=== PATIENT | male | born 1980 | race Caucasian/White ===

== ENCOUNTER 2020-12-21 12:50 | Outpatient (REF) | payer MEDICARE, MEDICAID, SELFPAY | END 2020-12-21 12:51 | disposition home or self-care (01) | LOC: HO.HMGCLDS 12:50 | PROVIDERS: Visit Provider Internal Medicine | DX: Z20.822 Contact with and (suspected) exposure to COVID-19 (principal) | CPT/HCPCS: C9803; U0003; U0005 ==

== ENCOUNTER 2023-11-15 12:25 | Outpatient (AMB) | payer MEDICARE, MEDICAID, SELFPAY ==
--- OUTSIDE RECORDS SUMMARY | 2023-11-15 12:27 | XMS_ITS | Patient Health Record ---
Author Organization [facility] Address [address] [place] [id number] Care Team Providers Care Pest Control Technician Name Role Phone AMINATA ROGERS Primary Care Provider JASON ERWIN Unavailable [phone] ALLERGIES Allergen (clinical drug ingredient) Drug/Non Drug Allergy documented on EMR Reaction Allergy Type Onset Date Status Latex latex (uncoded) Unknown Allergy Acti ve Pollen pollen (uncoded) Unknown Allergy Act artemio REASON FOR REFERRAL Reason Pt needing referral for colorectal Diagnosis 1 Anal pain (K62.89) Diagnosis 2 Other constipation ( K59.09) Referral Organization [facility] Referring Provider First Name AMINATA Referring Provider Last Name SUE Referring Provider Speciality Internal M edicine Referred Provider Specialty Colorectal S urgery General Notes faxed over specialty appt request form to [facility] colorectal Surgery., [phone] Clinical Notes Alejandra Maravilla 06/26 11:58:51 AM > Referral Priority Routine MEDICATIONS Medication SIG (Take, Route, Frequency, Duration) Notes Start Date End Date Status Hydrocortisone (Perianal) 2.5 % 1 application Externally Twice a day for 30 days 12/28/2021 Active Allopurinol 300 MG 1 tablet Orally Once a day for 90 Active Levothyroxine Sodium 75 MCG TAKE ONE TAB LET BY MOUTH EVERY MORNING ON AN EMPTY STOMACH for 30 Active Albuterol Sulfate HFA 108 (90 Base) MCG/ACT 1 puff as needed Inhalation every 4 hrs for 30 days 08/17/2022 Active Fluticasone Propionate 50 MCG/ACT 1 spray in each nostril Nasally Once a day for 30 day(s) 08/17/2022 Active Clotrimazole-Betamethasone 1-0.05 % APPLY TWICE DAILY TOPICALLY for 30 Active Vitamin D (Ergocalciferol) 37562 UNIT 1 capsule Orally weekly for 30 day(s) Active Pravastatin Sodium 40 MG TAKE ONE TABLET BY MOUTH EVERY DAY for 90 Active Lisinopril 5 MG 1 tablet Orally Once a day for 30 day(s) Active Colchicine 0.6 MG TAKE ONE TABLET BY M OUTH EVERY DAY for 30 Active Cetirizine HCl 10 MG TAKE ONE TABLET BY MOUTH EVERY DAY for 30 Active Ipratropium-Albuterol 0.5-2.5 (3) MG/3ML 3 ml Inhalation dx r06.02 and dx j45.0 every 6 hrs for 30 days Active Ventolin HFA 108 (90 Base) MCG/ACT 2 puffs as needed for sob Inhalation every 6 hrs for 30 days Active Colace 100 MG 1 capsule as needed Orally every 8 hours for 30 days Active IMMUNIZATIONS Vaccine Route Administration Date Status Comme nts Influenza, seasonal, injectable, 6-35 months Unknown 03/22/2016 Administered Moderna Covid-19 Vaccine IM Intramuscular 07/16/2020 Admin istered Moderna Covid-19 Vaccine Unknown 07/16/2020 Administere d Moderna Covid-19 Vaccine IM Intramuscular 07/26/2020 Admin istered Moderna Covid-19 Vaccine Unknown 08/13/2020 Administere d Moderna Covid-19 Vaccine Unknown 03/26/2021 Administere d Moderna Covid-19 Vaccine Unknown 10/03/2021 Administere d Pneumococcal polysaccharide PPV23 Unknown 07/13/2017 Administered prevnar 13 Unknown 03/09/2020 Administered Tdap Unknown 08/22/2018 Administered SOCIAL HISTORY Tobacco Use: Social History Observation Description Date Details (start date - stop date) Never Smoker NA - NA Sex Assigned At : Social History Observation Description Sex Assigned At Unknown Tobacco Use/Smoking Question Answer Notes Are you a nonsmoker PROBLEMS Problem Type ICD Code Onset Dates Problem Status W/U Status Risk SNOMED Code Notes Problem Asthma, unspecified, unspecified status (493.90) Active confirmed Asthma witho ut status asthmaticus (43200696) Problem Hypothyroidism, unspecified (E03.9) Active confirmed Hypothyroidism (62532770) Problem Morbid (severe) obesity due to excess calories (E66.01) Active confirmed Morbid obesity (disorder) (951319128) Problem Mixed hyperlipidemia (E78.2) Active confirmed Mixed hyperlipidemia (036012656) Problem Specific reading disorder (F81.0) Active confirmed Specific re ading disorder (971047601) Problem Essential (primary) hypertension (I10) Active confirmed Essential hypertension (16531343) Problem Mild intermittent asthma, uncomplicated (J45.20) Active confirmed Mild intermitte nt asthma (825406126) Problem Unspecified asthma with (acute) exacerbation (J45.901) Active confirmed Exacerbation of asthma (735067778) Problem Constipation, unspecified (K59.00) Active confirmed Constipation (26820991) Problem Other constipation (K59.09) Active confirmed 92093507 Problem Idiopathic gout, unspecified site (M10.00) Active confirmed Primary gout (53739345) Problem Encounter for general adult medical examination without abnormal findings (Z00.00) Active confirmed 813245293 Problem Body mass index (BMI) 40.0-44.9, adult (Z68.41) Active confirmed Body mass ind ex 40+ - severely obese (340330431) Problem Body mass index (BMI) 45.0-49.9, adult (Z68.42) Active confirmed Body mass ind ex 40+ - severely obese (284028224) Problem Body mass index (BMI) 50-59.9 , adult (Z68.43) Active confirmed Body mass ind ex 40+ - morbidly obese (918446542) Problem Morbid obesity (E66.01) Active confirmed Morbid obesity (387860166) Problem Hyperlipidemia, unspecified hyperlipidemia type (E78.5) Active confirmed Hyperlipidaemia (29392525) Problem Hematuria, unspecified type (R31.9) Active confirmed 45371643 Problem Adult general medical exam (Z00.00) Active confirmed Adult health examination (254358248) Problem Hypothyroidism, unspecified type (E03.9) Active confirmed Hypothyroidism (83680965) Problem Vitamin D deficiency (E55.9) Active confirmed Vitamin D deficiency (88989053) Problem Anal pain (K62.89) Active confirmed 28748312 Problem Fatty liver disease, nonalcoholic (K76.0) Active confirmed Fatty liver (684157571) Problem BMI 45.0-49.9, adult (Z68.42) Active confirmed Body mass ind ex 40+ - severely obese (636370549) Problem GERD without esophagitis (K21.9) Active confirmed Gastroesophagea l reflux disease (514962785) Problem Asthma (J45.909) Active confirmed Asthm a (605148164) Problem Screening for diabetes mellitus (DM) (Z13.1) Active confirmed 534781318 VITAL SIGNS Heart Rate 79 /min 06/25/2023 Oximetry 98 % 06/25/2023 Blood pressure diastolic 70 mm Hg 06/25/2023 Height 67 in 06/25/2023 Blood pressure systolic 128 mm Hg 06/25/2023 Weight 318 lbs 06/25/2023 BMI 49.8 kg/m2 06/25/2023 Encounters Encounter Location Date Provider Diagnosis [place] [address] [address] 10/24/2023 JASON BORHOT Essential (primary) hypertension I10 ; Mixed hyperlipidemia E78.2 ; Morbid (severe) obesity due to excess calories E66.01 ; Mild intermittent asthma, uncomplicated J45.20 ; BMI 45.0-49.9, adult Z68.42 ; Anal pain K62.89 and Other constipation K59.09 [place] [address] [address] 02/26/2023 AMINATA ROGERS Essential (primary) hypertension I10 ; Adult general medical exam Z00.00 ; Mixed hyperlipidemia E78.2 ; Morbid (severe) obesity due to excess calories E66.01 ; Hypothyroidism, unspecified E03.9 ; Mild intermittent asthma, uncomplicated J45.20 ; Depression screen Z13.31 ; Encounter for screening for other disorder Z13.89 ; BMI 45.0-49.9, adult Z68.42 and ACP (advance care planning) Z71.89 [place] [address] [address] 06/25/2023 JASON BORHOT Essential (primary) hypertension I10 ; Mixed hyperlipidemia E78.2 ; Morbid (severe) obesity due to excess calories E66.01 ; Mild intermittent asthma, uncomplicated J45.20 ; BMI 45.0-49.9, adult Z68.42 ; Anal pain K62.89 ; Other constipation K59.09 and Vitamin D deficiency E55.9 [facility] [address] [place] [address] 11/15/2022 AMINATA ROGERS [facility] [address] [place] [address] 02/06/2023 JASON ERWIN [facility] [place] [address] [facility] [address] [address] [facility] [address] [address] 11/15/2023 AMINATA ROGERS ASSESSMENTS Encounter Date Diagnosis Assessment Notes Treatment Notes Treatment Clinical Notes 02/26/2023 Essential (primary) hypertension (ICD-10 - I10) 02/26/2023 Adult general medica l exam (ICD-10 - Z00.00) 06/25/2023 Essential (primary) hypertension (ICD-10 - I10) 10/24/2023 Essential (primary) hypertension (ICD-10 - I10) 10/24/2023 Mixed hyperlipidemia (ICD-10 - E78.2) 06/25/2023 Mixed hyperlipidemia (ICD-10 - E78.2) 02/26/2023 Mixed hyperlipidemia (ICD-10 - E78.2) 02/26/2023 Morbid (severe) obesity due to excess calories (ICD-10 - E66.01) 06/25/2023 Morbid (severe) obesity due to excess calories (ICD-10 - E66.01) 10/24/2023 Morbid (severe) obesity due to excess calories (ICD-10 - E66.01) 10/24/2023 Mild intermittent asthma, uncomplicated (ICD-10 - J45.20) 06/25/2023 Mild intermittent asthma, uncomplicated (ICD-10 - J45.20) 02/26/2023 Hypothyroidism, unspecified (ICD-10 - E03.9) 02/26/2023 Mild intermittent asthma, uncomplicated (ICD-10 - J45.20) 06/25/2023 BMI 45.0-49.9, adult (ICD-10 - Z68.42) 10/24/2023 BMI 45.0-49.9, adult (ICD-10 - Z68.42) 10/24/2023 Anal pain (ICD-10 - K62.89) 02/26/2023 Depression screen (ICD-10 - Z13.31) 06/25/2023 Anal pain (ICD-10 - K62.89) 06/25/2023 Other constipation (ICD-10 - K59.09) 02/26/2023 Encounter for screening for other disorder (ICD-10 - Z13.89) 10/24/2023 Other constipation (ICD-10 - K59.09) 02/26/2023 BMI 45.0-49.9, adult (ICD-10 - Z68.42) 06/25/2023 Vitamin D deficiency (ICD-10 - E55.9) 02/26/2023 ACP (advance care planning) (ICD-10 - Z71.89) PLAN OF TREATMENT Pending Test Test Name Order Date TSH+Free T4 02/02/2019 Lipid Panel 02/02/2019 Lipid Panel 09/05/2018 Comp. Metabolic Panel (14) 09/05/2018 Comp. Metabolic Panel (14) 02/02/2019 CBC 02/02/2019 CBC 09/05/2018 Urinalysis 09/05/2018 EKG 12/17/2017 25OH VITAMIN D 09/07/2021 25OH VITAMIN D 06/25/2023 CBC (COMPLETE BLOOD COUNT) 09/20/2020 CBC (COMPLETE BLOOD COUNT) 07/26/2020 CBC (COMPLETE BLOOD COUNT) 12/17/2017 CBC (COMPLETE BLOOD COUNT) 10/16/2017 CBC (COMPLETE BLOOD COUNT) WITH DIFF CBC (COMPLETE BLOOD COUNT) WITH DIFF 10/2023 COMPREHENSIVE METABOLIC PANEL 07/26/2020 COMPREHENSIVE METABOLIC PANEL 12/17/2017 COMPREHENSIVE METABOLIC PANEL 04/11/2021 COMPREHENSIVE METABOLIC PANEL 09/20/2020 COMPREHENSIVE METABOLIC PANEL 09/07/2021 COMPREHENSIVE METABOLIC PANEL 06/25/2023 COMPREHENSIVE METABOLIC PANEL 10/16/2017 CRP, HIGH SENSITIVITY 12/17/2017 HEMOGLOBIN A1C 04/11/2021 HEMOGLOBIN A1C 02/07/2022 HEMOGLOBIN A1C 07/26/2020 HEMOGLOBIN A1C 09/07/2021 HEMOGLOBIN A1C 06/25/2023 HEMOGLOBIN A1C 10/16/2017 LIPID PANEL 10/16/2017 LIPID PANEL 09/07/2021 LIPID PANEL 06/25/2023 LIPID PANEL 07/26/2020 LIPID PANEL 12/17/2017 T4, TOTAL 02/07/2022 T4, TOTAL 04/12/2021 TSH 04/12/2021 TSH 02/07/2022 TSH 04/11/2021 TSH 06/25/2023 TSH WITH REFLEX TO FT4 07/26/2020 TSH WITH REFLEX TO FT4 09/07/2021 URIC ACID 09/20/2020 URIC ACID 12/17/2017 URINALYSIS W/REFLEX CULTURE 06/25/2023 URINALYSIS W/REFLEX CULTURE 09/07/2021 URINALYSIS, COMPLETE 10/16/2017 Uric Acid 02/02/2019 CT Head w and w/o Contrast 03/25/2018 XR KUB 12/28/2021 LIPID PANEL, STANDARD 02/26/2023 COMPREHENSIVE METABOLIC PANEL 02/26/2023 CBC (INCLUDES DIFF/PLT) 02/26/2023 URINALYSIS, COMPLETE 02/26/2023 COMPLETE URINALYSIS 09/20/2020 COMPLETE URINALYSIS 07/26/2020 Next Appt Details Provider Name:JASON ERWIN, 12/27/2023 11:00:00 AM, [address] [facility], [facility] [address], [place], [address], Insurance Providers Payer Name Payer Address Payer Phone Subscriber Number Group Number Insured Name Patient Relationship to Insured Coverage Start Date Coverage End Date Medicare Part B J14 [address] [place] [id number] KAYLA FOWLER Self - patient is the insured 9 [employer] [place] [address] [place] [address] [id number] KAYLA FOWLER Self - patient is the insured MEDICAL (GENERAL) HISTORY Medical History History ICD Code hyperlipidemia hypertension asthma
--- NOTE | 2023-11-15 12:47 | MHC.OFFWIV ---
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 Slip and fall at work yesterday Patient Tobacco Use Status: Never used Tobacco Allergies latex Allergy (Severe, Verified 11/15/23 13:59) Rash Medication List - Last Reconciled 11/15/23 by PARVIZ Reynoso acetaminophen ER 650 mg PO Q8H cetirizine 10 mg PO DAILY colchicine 0.6 mg PO DAILY ipratropium-albuterol 0.5 mg-3 mg(2.5 mg base)/3 mL mL inhalation Q6H levothyroxine 75 mcg PO DAILY lisinopril 5 mg PO DAILY pravastatin 40 mg PO DAILY Do you need a note to return to daycare/school/sports/work: Yes HPI HPI Comments History of Present Illness Details Patient is a 43-year-old male in today following an injury at work. One day prior patient was at work and slipped and fell on water on the floor that was dripping from on AC unit. Patient states that he landed on his left knee. Denies hearing cracks or pops when the injury occurred. Does report that he is having pain with ambulation. Has utilize Tylenol and ice with mild effect denies any tingling or numbness. Patient does have history of left knee sprain, has been utilizing left knee brace that he got from this prior injury. Patient is able to ambulate on the affected joint with a limb, is currently using assistance from a cane On physical exam patient's left knee is negative for cracking or crepitus. No edema or erythema. No bruising. Patient does have full range of motion. He is able to ambulate but with a limp. Will order left knee x-ray. PFSH Social History Patient Tobacco Use Status: Never used Tobacco Review of Systems Const All systems reviewed & are unremarkable except as noted in HPI and below Physical Exam Vital Signs: Last Vital Signs Temp 98.3 F 11/15/23 12:48 Pulse 58 11/15/23 12:48 BP 118/72 11/15/23 12:48 Pulse Ox 98 11/15/23 12:48 Oxygen Delivery Method Room Air 11/15/23 12:48 BMI result Body Mass Index 52.5 Const Other: Appearance: Alert.? Oriented X3.? No acute distress.? Head: Normocephalic, atraumatic, no step-offs or deformities Respiratory: No respiratory distress.? ? Extremities: No lower extremity edema.? No calf ttp. 5/5 strength to bilateral upper and lower extremities. No obvious deformity. +Patient ambulating with a limp. Neuro: Oriented X 3.? No motor deficit.? No sensory deficit. CN 2-12 intact Assessment & Plan Assessment & Plan (1) Left knee pain: Comment: Patient given left knee x-ray. Patient also given meloxicam and cyclobenzaprine to be taken as prescribed. This is likely a sprain of the left knee. Will follow up with official x-ray readings. Patient will continue to utilize his knee brace. Should rest and ice the affected joint. Will give referral to physical therapy if indicated Code(s): M25.562 - Pain in left knee Qualifiers: Chronicity: acute Qualified Code(s): M25.562 - Pain in left knee Plan: will follow up with results. Medications: New meloxicam Do not combine with other NSAIDS. 15 mg PO DAILY 20 tabs 0RF cyclobenzaprine 5 mg PO BEDTIME PRN 14 tabs 0RF muscle spasm Coding Level of Care Code Est Pt Level 3 (88316) Diagnoses Acute pain of left knee M25.562 Chronicity: acute Time Spent (min) 27
[2023-11-15 12:48] VITALS: BP 118/72; PULSE 58; TEMP 36.8; O2SAT 98; BMI 52.5
== END 2023-11-15 14:23 | disposition home or self-care (01) ==
PROVIDERS: PCP Internal Medicine; Visit Provider Nurse Practitioner Primary Care
DX: M25.562 Pain in left knee (principal); Z04.2 Encounter for examination and observation following work accident
CPT/HCPCS: 99213

== ENCOUNTER 2023-11-15 13:35 | Outpatient (REF) | payer MEDICARE, MEDICAID, SELFPAY ==
--- NOTE | ~2023-11-15 | XR_ITS ---
EXAMINATION: XR KNEE, LEFT CLINICAL INFORMATION: Pain COMPARISON: None available. TECHNIQUE: Four views of the left knee. FINDINGS: No fracture or joint effusion. Alignment is anatomic. Joint spaces are maintained. No abnormal soft tissue calcification. XR/XR knee LT 4V IMPRESSION: Normal left knee.
== END 2023-11-15 13:36 | disposition home or self-care (01) ==
LOC: HO.HMGCX 13:35
PROVIDERS: PCP Internal Medicine; Visit Provider Nurse Practitioner Primary Care
DX: M25.562 Pain in left knee (principal)
CPT/HCPCS: 73564

== ENCOUNTER 2024-11-27 13:29 | Outpatient (AMB) | payer MEDICARE, MEDICAID, SELFPAY ==
--- OUTSIDE RECORDS SUMMARY | 2024-11-27 13:32 | XMS_ITS | Clinical Summary ---
Author Organization [facility] Facility Address [address] [address] Care Team Providers Care Chemotherapist Name Role Phone Lakisha Carrera MD Primary Care Provider [phone] Allergies Active Allergy Reactions Criticality Noted Date Comments Latex Other (see comments) 01/27/2021 Medications albuterol (2.5 MG/3ML) 0.083% nebulizer solution every 4 (four) hours Active albuterol HFA (ProAir HFA) 108 (90 Base) MCG/ACT inhaler Inhale 2 puffs every 4 (four) hours Active allopurinol (ZYLOPRIM) 300 MG tablet Take 1 tablet by mouth 1 (one) time each day Active cetirizine (ZyrTEC) 10 MG tablet Take 1 tablet by mouth at bed time Active colchicine (Colcrys) 0.6 MG tablet Take 1 tablet by mouth 1 (one) time each day Active ergocalciferol 1.25 MG (97117 UT) capsule Take 1 capsule by mouth 1 (one) time per week 7 Active fluticasone (FLONASE) 50 MCG/ACT nasal spray Administer 1 spray into each nostril 2 (two) times a day Active levothyroxine (SYNTHROID, LEVOTHROID) 50 MCG tablet Take 1 tablet by mouth 1 (one) time each day Active pravastatin (PRAVACHOL) 40 MG tablet Take 1 tablet by mouth 1 (one) time each day Active clotrimazole-be tamethasone (LOTRISONE) cream APPLY TWICE DAILY TOPICALLY 1 Active lisinopril 5 MG tabletIndicatio ns:Hypothyroidi sm, not otherwise specified,Hyper tension,Type 2 diabetes mellitus with diabetic chronic kidney disease (HCC),Stage 3 chronic kidney disease, not otherwise specified (HCC) Take 1 tablet (5 mg total) by mouth 1 (one) time each day 30 tablet 11 4 Active Active Problems Problem Noted Date Diagnosed Date Chronic constipation 01/27/2021 Developmental academic disorder 01/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 Dysuria 01/27/2021 Essential hypertension 01/27/2021 Gastroesophageal reflux disease 01/27/2021 Gout 01/27/2021 Hyperlipidemia 01/27/2021 Hypothyroidism 01/27/2021 Microscopic hematuria 01/27/2021 Obstructive sleep apnea syndrome 01/27/2021 Proteinuria 01/27/2021 Family History Medical History Relation Comments Diabetes Father Hypertension Mother Relation Status Comments Father Alive Mother Alive Social History Tobacco Use Types Packs/Day Years Used Date Smoking Tobacco: Never Alcohol Use Standard Drinks/Week Comments No 0 (1 standard drink = 0.6 oz pur e alcohol) Sex and Gender Information Value Date Recorded Sex Assigned at Not on file Legal Sex Male 4:49 PM EST Gender Identity Not on file Sexual Orientation Not on file Plan of Treatment Health Maintenance Due Date Last Done Comments Hepatitis B Vaccine (1 of 3 - 19+ 3-dose series) 2000 Influenza Vaccine (#1) 2025 Pneumococcal Vaccine: Peds ( 0 to 5 Years) and At-Risk Patients (6 to 49 Years) Aged Out No longer eligible b ased on patient's age to complete this topic Insurance [place] Care Teams Chemotherapist Relationship Specialty Start Date End Date Lakisha Carrera MD [address] [place] [id number] PCP - General 05/30/20
--- OUTSIDE RECORDS SUMMARY | 2024-11-27 13:33 | XMS_ITS | Patient Health Record ---
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 Name Role Phone AMINATA CARRERA Primary Care Provider [phone] JASON ERWIN Unavailable [phone] YAZAN GIMENEZ Unavailable [phone] PEDRO CARVAJAL Unavailable [phone] Allergies Allergen (clinical drug ingredient) Drug/Non Drug Allergy documented on EMR Reaction Allergy Type Onset Date Status Latex latex (uncoded) Unknown Allergy Acti ve Pollen pollen (uncoded) Unknown Allergy Act artemio Results Component Value Reference Range Notes THYROXINE TOTAL Reviewed date:09/09/2024 06:00:15 PM Interpretation: Performing Lab: Notes/Report: add on T4 T4, Total 8.2 4.5-10.9 mcg/dL FREE THYROXINE WITH REFLEX T O FREE TRIIODOTHYRONINE Reviewed date:09/10/2024 11:48:39 AM Interpretation: Performing Lab: Notes/Report: Free T4 1.04 0.70-1.80 ng/dL URINALYSIS WITH REFLEX MICRO SCOPIC Reviewed date:2024 10:46:53 AM Interpretation: Performing Lab: Notes/Report: Specific Mcwilliams Urine 1.020 1.003-1.030 pH, Urine 5.5 5.0-8.0 pH Leukocytes, Urine Negative Negative Nitrite, Urine Negative Negative Protein, Urine 100 <=Trace mg/dL Glucose, Urine Negative Negative mg/dL Ketones, Urine Trace Negative mg/dL Urobilinogen, Urine 0.2 0.2-1.0 mg/dL Bilirubin, Urine Negative Negative Blood, Urine Negative Negative RBC, Urine 5.2 0-4 /HPF WBC, Urine 0.7 0-4 /HPF Squamous Epithelial, Urine 8 0-60 /LPF Bacteria, Urine Negative Negative /HPF Hyaline Casts, Urine 0.0 0-3 /LPF HEMOGLOBIN A1C Reviewed date:09/10/2024 11:48:39 AM Interpretation: Performing Lab: Notes/Report: Hemoglobin A1C 6.2 <6.5 % Mean Bld Glu Estim. 131 THYROID STIMULATING HORMONE WITH REFLEX TO FREE T4 AND FREE T3 Reviewed date:2024 10:46:42 AM Interpretation: Performing Lab: Notes/Report: TSH 5.90 0.40-4.00 mcIU/mL TRIIODOTHYRONINE FREE Reviewed date:09/10/2024 11:48:39 AM Interpretation: Performing Lab: Notes/Report: T3, Free 324 230-420 pcg/dL COMPREHENSIVE METABOLIC PANE L Reviewed date:2024 10:46:31 AM Interpretation: Performing Lab: Notes/Report: Sodium 139 133-145 mmol/L Potassium 3.8 3.5-5.5 mmol/L Chloride 106 96-110 mmol/L CO2 27 21-32 mmol/L Anion Gap 6 3-11 Glucose 96 70-100 mg/dL BUN 15 5-25 mg/dL Creatinine 1.16 0.70-1.30 mg/dL eGFR 81 >=60 mL/min/1.73m2 Calculati on based on the?Chronic Kidney Disease Epidemiology Collaboration (CKD-EPI) equation refit?without adjustment for race. BUN/Creatinine Ratio 12.9 Calcium 9.1 8.5-10.5 mg/dL AST (SGOT) 48 10-42 unit/L ALT (SGPT) 65 10-60 unit/L Alkaline Phosphatase 91 42-121 unit/L Total Protein 7.6 6.0-8.0 g/dL Albumin 3.4 3.2-5.0 g/dL Total Bilirubin 0.7 0.0-1.4 mg/dL VITAMIN D 25 HYDROXY Reviewed date:2024 10:46:26 AM Interpretation: Performing Lab: Notes/Report: Vit D, 25-Hydroxy 13.8 30.0-80.0 ng/mL LIPID PANEL WITH REFLEX TO D IRECT LDL Reviewed date:2024 10:46:36 AM Interpretation: Performing Lab: Notes/Report: Cholesterol 187 0-200 mg/dL Triglycerides 130 0-150 mg/dL HDL 50 >=40 mg/dL LDL Calculated 111 0-100 mg/dL VLDL Cholesterol Jerry 26 Non HDL Chol. (LDL+VLDL) 137 <145 mg/dL Chol/HDL Ratio 3.7 0.0-4.4 CBC WITH AUTO DIFFERENTIAL Reviewed date:2024 10:46:48 AM Interpretation: Performing Lab: Notes/Report: WBC 7.9 4.8-10.8 K/mcL RBC 6.10 4.50-5.50 M/mcL Hemoglobin 16.2 13.5-17.5 g/dL Hematocrit 50.8 42.0-54.0 % MCV 83.3 79.0-98.0 FL MCH 26.6 27.0-32.0 pcg MCHC 31.9 32.0-37.0 g/dL RDW 13.9 11.0-15.0 % Platelets 226 130-400 K/mcL MPV 11.3 7.0-11.0 FL NRBC 0.0 <1.0 % NRBC Absolute 0.00 <0.10 K/mcL Neutrophils Relative 57.8 Lymphocytes Relative 26.5 Monocytes Relative 8.2 Eosinophils Relative 6.2 Basophils Relative 1.0 Immature Granulocytes Relative 0.3 Neutrophils Absolute 4.57 1.50-7.00 K/mcL Lymphocytes Absolute 2.10 1.00-5.00 K/mcL Monocytes Absolute 0.65 0.20-1.00 K/mcL Eosinophils Absolute 0.49 0.00-0.50 K/mcL Basophils Absolute 0.08 0.00-0.20 K/mcL Immature Granulocytes Absolute 0.02 0.00-0.03 K/mcL THYROXINE TOTAL Reviewed date:05/29/2024 08:13:27 AM Interpretation: Performing Lab: Notes/Report: T4, Total 8.5 4.5-10.9 mcg/dL THYROID STIMULATING HORMONE Reviewed date:05/29/2024 08:28:27 AM Interpretation: Performing Lab: Notes/Report: TSH 5.49 0.40-4.00 mcIU/mL UA WITH CULTURE IF INDICATED Reviewed date:12/16/2023 02:54:19 PM Interpretation: Performing Lab: Notes/Report: Original Ordering Provider: JASON ERWIN NP [employer], a member of [address] [address] Commercial Representative - Larisa Beltran MD GLUCOSE, (UA) NEGATIVE NEGATIVE mg/dL BILIRUBIN, URINE NEGATIVE NEGATIVE KETONE, URINE TRACE NEGATIVE mg/dL SPECIFIC GRAVITY, URINE 1.025 1.003-1.030 BLOOD, URINE NEGATIVE NEGATIVE PH, URINE 5.5 5.0-8.0 PROTEIN, URINE 100 <= TRACE mg/dl UROBILINOGEN, URINE 1.0 0.2-1.0 E.U./dL NITRITE, URINE NEGATIVE NEGATIVE LEUKOCYTE ESTERASE, URINE NEGATIVE NEGATIVE RBC, URINE 4 0-4 /HPF WBC, URINE 1 0-4 /HPF EPITH CELLS, URINE 7 0-60 /LPF BACTERIA, URINE NEGATIVE NEGATIVE HYALINE CAST, URINE 2 0-3 /LPF TSH Reviewed date:12/16/2023 01:52:15 PM Interpretation: Performing Lab: Notes/Report: [employer] [address] Commercial Representative - Larisa Beltran MD TSH 5.90 0.40-4.00 uIU/ml VITAMIN D, 25-HYDROXY Reviewed date:12/16/2023 01:52:15 PM Interpretation: Performing Lab: Notes/Report: VITAMIN D, 25-HYDROXY 16 30-80 ng/mL LIPID PROFILE Reviewed date:12/16/2023 01:52:15 PM Interpretation: Performing Lab: Notes/Report: CHOLESTEROL 197 0-200 mg/dL TRIGLYCERIDES 122 0-150 mg/dL HDL CHOLESTEROL 48 >40 mg/dL LDL CALCULATED 125 0-100 mg/dL TC-HDLC RATIO 4.1 0-4.4 mg/dL CBC WITH AUTO DIFF Reviewed date:12/16/2023 01:31:41 PM Interpretation: Performing Lab: Notes/Report: Original Ordering Provider: JASON ERWIN NP [employer] [address] Commercial Representative - Larisa Beltran MD WBC 8.2 4.8-10.8 x10-3/uL RBC 6.3 4.5-5.5 x10-6/uL HEMOGLOBIN 16.3 13.5-17.5 g/dL HEMATOCRIT 51.7 42-54 % MCV 82.7 79-98 fL MCH 26.1 27-32 pg MCHC 31.5 32-37 g/dL RDW 14.1 11-15 % PLT COUNT 244 130-400 x10-3/uL MEAN PLATELET VOLUME 11.3 7-11 fL NRBC % AUTO 0.0 <1 % NEUT % 64.3 LYMPH % 21.5 MONO % 7.9 EOS % 5.0 BASO % 0.9 IMMATURE GRANULOCYTES % 0.4 NRBC # AUTO 0.00 <0.1 x10-3/uL ABSOLUTE NEUT 5.30 1.5-7.0 x10-3/uL LYMPH # 1.77 1-5.0 x10-3/uL MONO # 0.65 0.2-1.0 x10-3/uL EOS # 0.41 0-0.5 x10-3/uL BASO # 0.07 0-0.2 x10-3/uL IMMATURE GRANULOCYTES # 0.03 0-0.03 x10-3/uL COMPREHENSIVE METABOLIC PANE L Reviewed date:12/16/2023 01:52:15 PM Interpretation: Performing Lab: Notes/Report: Note Original Orderi ng Provider: JASON ERWIN NP GLUCOSE 99 70-100 mg/dL Reference range applicable to fasting specimens only BUN 14 5-25 mg/dL CREAT 1.35 0.7-1.3 mg/dL GLOMERULAR FILTRATION RATE 67 >60 This eGFR result was calculated using the CKD-EPI 2020 Creatinine Equation SODIUM 139 135-145 mEq/L POTASSIUM 4.2 3.5-5.5 mmol/L CHLORIDE 105 96-110 mmol/L CO2 30 21-32 mmol/L ANION GAP 4 3-11 CALCIUM 9.4 8.5-10.5 mg/dL TOTAL PROTEIN 7.7 6.0-8.0 G/dL ALBUMIN 3.6 3.2-5.0 G/dL BILI,TOTAL 0.8 0.0-1.4 mg/dL SGOT 44 10-42 U/L SGPT 60 10-60 U/L ALK PHOS 88 42-121 U/L GLYCOHEMOGLOBIN PROFILE Reviewed date:12/17/2023 07:48:04 AM Interpretation: Performing Lab: Notes/Report: Original Ordering Provider: JASON ERWIN NP [employer] [address] Commercial Representative - Larisa Beltran MD GLYCATED HEMOGLOBIN A1C 6.1 <6.5 % ESTIMATED AVERAGE GLUCOSE 128 Reason For Referral Reason [facility] Pulmonology Assessment/Treatment Diagnosis 1 Asthma, unspecified asthma severity, unspecified whether complicated, unspecified whether persistent (J45.909) Referral Organization [facility] [address] Referring Provider First Name PEDRO Referring Provider Last Name ALENA Referring Provider Speciality Internal M edicine Referred Provider Specialty Pulmonology General Notes Zoë Nimo marrero 03/30/2024 04:24:37 PM > Referral with attachment and form faxed, pt given info to call and schedule visit. [facility] Pulmonology p: [phone] f: [phone] Clinical Notes PranavPetar voss 03:54:40 PM > refaxed to [phone], [place] 05/12/2024 10:16:19 AM > Scheduled for 07/10/24 at 9 am Referral Priority Routine Medications Medication SIG (Take, Route, Frequency, Duration) Notes Start Date End Date Status Pravastatin Sodium 40 MG TAKE ONE TABLET BY MOUTH EVERY DAY Orally Once a day; Duration: 90 days Active Levothyroxine Sodium 75 MCG TAKE ONE TABLET BY MOUTH EVERY MORNING ON AN EMPTY STOMACH; Duration: 30 Active Ipratropium-Albuterol 0.5-2.5 (3) MG/3ML 3 ml Inhalation dx r06.02 and dx j45.0 every 6 hrs; Duration: 30 days Active Cetirizine HCl 10 MG TAKE ONE TABLET BY MOUTH EVERY DAY; Duration: 30 Active Ventolin HFA 108 (90 Base) MCG/ACT 2 puffs as needed for sob Inhalation every 6 hrs; Duration: 30 days Active Allopurinol 300 MG 1 tablet Orally Once a day; Duration: 90 Active Benzonatate 100 MG 1 capsule as needed for cough Orally Three times a day; Duration: 7 days 08/05/2024 Active Hydrocortisone (Perianal) 2.5 % 1 application Externally Twice a day; Duration: 30 days 12/28/2021 Active Clotrimazole 1 % 1 application Externally Twice a day; Duration: 30 days 09/09/2024 Active Fluticasone Propionate 50 MCG/ACT 1 spray in each nostril Nasally Once a day; Duration: 30 day(s) 08/17/2022 Active Vitamin D (Ergocalciferol) 67701 UNIT 1 capsule Orally weekly; Duration: 30 day(s) Not-Taking Colchicine 0.6 MG TAKE ONE TABLET BY MOUTH EVERY DAY; Duration: 30 Active Albuterol Sulfate HFA 108 (90 Base) MCG/ACT 1 puff as needed Inhalation every 4 hrs; Duration: 30 days 08/17/2022 Active metFORMIN HCl ER 750 MG 1 tablet with ev ening meal Orally Once a day; Duration: 90 days 12/27/2023 Not-Takin g Paxlovid (300/100) 20 x 150 MG & 10 x 100MG 3 tablets as directed Orally Twice a day; Duration: 5 days 09/14/2024 Active guaiFENesin ER 600 MG 1 tablet as needed Orally every 12 hrs; Duration: 5 days 09/14/2024 Active Fluticasone Propionate 50 MCG/ACT 1 spray in each nostril Nasally Twice a day; Duration: 30 days 05/28/2024 Active Colace 100 MG 1 capsule as needed Orally every 8 hours; Duration: 30 days Active Lisinopril 5 MG 1 tablet Orally Once a day; Duration: 30 day(s) Active Clotrimazole-Betamethasone 1-0.05 % APPLY TWICE DAILY TOPICALLY; Duration: 30 Active Immunizations Vaccine Route Administration Date Status Comme nts [...] Unknown 03/09/2020 Administered Tdap Unknown 08/22/2018 Administered Social History Tobacco Use: Social History Observation Description Date Details (start date - stop date) Never Smoker NA - NA Tobacco Use/Smoking Question Answer Notes Are you a nonsmoker Problems Problem Type SNOMED Code ICD Code Onset Dates Problem Status W/U Status Risk Notes Problem Asthma (disorder) (937999553) Asthma, unspecified, unspecified status (493.90) Active confirmed Problem Morbid obesity (disorder) (094752168) Morbid (severe) obesity due to excess calories (E66.01) Active confirmed Problem Mixed hyperlipidemia (664466338) Mixed hyperlipidemia (E78.2) Active confirmed Problem Specific reading disorder (812185233) Specific reading disorder (F81.0) Active confirmed Problem Essential hypertension (39059065) Essential (primary) hypertension (I10) Active confirmed Problem Mild intermittent asthma (663347944) Mild intermittent asthma, uncomplicated (J45.20) Active confirmed Problem Exacerbation of asthma (120362868) Unspecified asthma with (acute) exacerbation (J45.901) Active confirmed Problem Constipation (35374215) Constipation, unspecified (K59.00) Active confirmed Problem Constipation (81206249) Other constipation (K59.09) Active confirmed Problem Primary gout (30424781) Idiopathic gout, unspecified site (M10.00) Active confirmed Problem Adult health examination (271429758) Encounter for general adult medical examination without abnormal findings (Z00.00) Active confirmed Problem Lipid screening (183627441) Encounter for screening for lipoid disorders (Z13.220) Active confirmed Problem Body mass index 40+ - severely obese (601636287) Body mass index (BMI) 40.0-44.9, adult (Z68.41) Active confirmed Problem Body mass index 40+ - severely obese (269118599) Body mass index (BMI) 45.0-49.9, adult (Z68.42) Active confirmed Problem Body mass index 40+ - morbidly obese (738639825) Body mass index (BMI) 50-59.9 , adult (Z68.43) Active confirmed Problem Morbid obesity (580214924) Morbid obesity (E66.01) Active confirmed Problem Hyperlipidaemia (62651830) Hyperlipidemia, unspecified hyperlipidemia type (E78.5) Active confirmed Problem Hematuria syndrome (59666617) Hematuria, unspecified type (R31.9) Active confirmed Problem Acquired hypothyroidism (332402440) Acquired hypothyroidism (E03.9) Active confirmed Problem Adult health examination (314286330) Adult general medical exam (Z00.00) Active confirmed Problem Seasonal allergy (666028059) Seasonal allergies (J30.2) Active confirmed Problem Vitamin D deficiency (25793974) Vitamin D deficiency (E55.9) Active confirmed Problem Anal pain (48244203) Anal pain (K62.89) Active confirmed Problem Diabetes mellitus screening (455919327) Diabetes mellitus screening (Z13.1) Active confirmed Problem Fatty liver (068383026) Fatty liver disease, nonalcoholic (K76.0) Active confirmed Problem Asthma without status asthmaticus (86123149) Asthma, unspecified asthma severity, unspecified whether complicated, unspecified whether persistent (J45.909) Active confirmed Problem Upper respiratory infection (73742655) Upper respiratory tract infection, unspecified type (J06.9) Active confirmed Problem Body mass index 40+ - severely obese (044513781) BMI 45.0-49.9, adult (Z68.42) Active confirmed Problem Gastroesophageal reflux disease (600747245) GERD without esophagitis (K21.9) Active confirmed Problem Avitaminosis D (14709254) Avitaminosis D (E55.9) Active confirmed Problem Asthma (870742674) Asthma (J45.909) Active conf irmed Problem Endocrine/metabolic screening (286764883) Encounter for screening for endocrine disorder (Z13.29) Active confirmed Problem Exacerbation of intermittent asthma (552416426) Mild intermittent asthma with exacerbation (J45.21) Active confirmed Problem Diabetes mellitus screening (037944584) Screening for diabetes mellitus (DM) (Z13.1) Active confirmed Problem Gout (34187380) Controlled gout (M10.9) Active confirmed Vital Signs Heart Rate 66 /min 09/14/2024 Temperature 97.8 degrees Fahrenheit 09/14/2024 Oximetry 98 % 09/14/2024 Blood pressure diastolic 86 mm Hg 09/14/2024 Height 67 in 09/14/2024 Blood pressure systolic 146 mm Hg 09/14/2024 Weight 324 lbs 09/14/2024 BMI 50.74 kg/m2 09/14/2024 Encounters Encounter Location Date Provider Diagnosis [facility] [address] [place] [address] 07/28/2024 JASON ERWIN Essential (primary) hypertension I10 ; Mixed hyperlipidemia E78.2 ; Morbid (severe) obesity due to excess calories E66.01 ; Mild intermittent asthma, uncomplicated J45.20 ; TSH elevation R79.89 ; GERD without esophagitis K21.9 and Anal pain K62.89 [facility] [address] [address] 12/27/2023 JASON ERWIN Essential (primary) hypertension I10 ; Mixed hyperlipidemia E78.2 ; Morbid (severe) obesity due to excess calories E66.01 ; Mild intermittent asthma, uncomplicated J45.20 ; BMI 45.0-49.9, adult Z68.42 ; Anal pain K62.89 and Other constipation K59.09 [facility] [address] [address] 02/24/2024 JASON ERWIN Acute COVID-19 U07.1 and Non-recurrent acute serous otitis media of left ear H65.02 [facility] [address] 03/30/2024 PEDRO CARVAJAL Mild intermittent as thma with exacerbation J45.21 ; Acute cough R05.1 ; Sneezing R06.7 ; Essential hypertension I10 ; Hypothyroidism, unspecified E03.9 ; Idiopathic gout, unspecified site M10.00 ; Vitamin D deficiency E55.9 ; GERD without esophagitis K21.9 and Prediabetes R73.03 [facility] [address] [address] 05/28/2024 YAZAN GIMENEZ Upper respiratory tr act infection, unspecified type J06.9 [facility] [address] [address] 08/05/2024 PEDRO CARVAJAL Persistent cough R05 .3 ; Essential (primary) hypertension I10 ; Mild intermittent asthma, uncomplicated J45.20 ; Acquired hypothyroidism E03.9 ; Mixed hyperlipidemia E78.2 ; Controlled gout M10.9 ; Vitamin D deficiency E55.9 ; Prediabetes R73.03 and Seasonal allergies J30.2 [facility] [address] [address] 09/09/2024 JASON ERWIN Adult general medica l exam Z00.00 ; Encounter for screening for depression Z13.31 ; Encounter for screening for other disorder Z13.89 ; Essential (primary) hypertension I10 ; Mixed hyperlipidemia E78.2 ; Morbid (severe) obesity due to excess calories E66.01 ; Mild intermittent asthma, uncomplicated J45.20 ; TSH elevation R79.89 ; GERD without esophagitis K21.9 and Anal pain K62.89 [facility] [address] 09/14/2024 YAZAN GIMENEZ Acute COVID-19 U07.1 [facility] [address] [address] 12/16/2023 TALAL CARRERA [facility] [address] [facility] [address] [address] 02/20/2024 TALAL CARRERA [facility] [address] [address] 02/24/2024 JASON BORHOT [facility] [address] 03/30/2024 TALAL CARRERA [facility] [address] 04/24/2024 TALAL CARRERA [facility] [address] [place] [address] 05/06/2024 JASONRAFIA CHRISTINET Hypothyroidism, unspecified E03.[address] [address] [place] [address] 05/12/2024 TALAL CARRERA [facility] [address] 05/27/2024 TALAL CARRERA [facility] [address] 06/16/2024 JASON BORHOT [facility] [address] [facility] [address] 07/09/2024 TALAL CARRERA [facility] [address] [facility] [address] [address] 07/10/2024 JASON MARTHAHOT Essential (primary) hypertension I10 [facility] [address] [place] [address] 07/29/2024 JASON MARTHAHOT Hypothyroidism, unspecified E03.9 ; Hyperlipidemia, unspecified hyperlipidemia type E78.5 ; Vitamin D deficiency E55.9 ; Essential (primary) hypertension I10 and Adult general medical exam Z00.00 [facility] [address] [facility] [address] [facility] [address] [place] [address] 07/29/2024 JASON ERWIN [facility] [address] [address] 08/05/2024 JASON ERWIN [facility] [address] [facility] [address] [place] [address] 08/05/2024 JASON ERWIN [facility] [address] [facility] [address] [place] [address] 08/27/2024 YAZAN AMMY [facility] [address] [facility] [address] [place] [address] 09/07/2024 AMINATA CARRERA [facility] [address] [address] 09/09/2024 AMINATA CARRERA Adult general medica l exam Z00.00 ; Encounter for screening for lipoid disorders Z13.220 ; Diabetes mellitus screening Z13.1 ; Avitaminosis D E55.9 and Encounter for screening for endocrine disorder Z13.29 [facility] [address] [facility] [address] [address] 09/09/2024 JASON ERWIN [facility] [address] [address] 09/14/2024 JASON ERWIN [facility] [address] [address] 10/05/2024 AMINATA CARRERA [facility] [address] [address] 11/09/2024 JASON ERWIN [facility] [address] [facility] [address] [address] 11/26/2024 JASON ERWIN Assessments Encounter Date Diagnosis (ICD Code) Assessment Notes Treatment Notes Treatment Clinical Notes Section Notes 12/27/2023 Essential (primary) hypertension (ICD-10 - I10) Acute Concerns/Problem List: 12/27/2023 Chronic conditions are stable Will refer for colorectal, Please contact colorectal surgery number was given today Metformin for prediabetic state and obesity Updated labs are reviewed 4 months follow-up Reviewed with patient the importance of medication and treatment plan compliance with BP goal of less then 140/90 per JNC 8 guidelines based on patient's age. This will ensure optimal health outcomes and prevent target organ damage. Made aware that uncontrolled hypertension may be silent and result in a stroke, heart attack, renal failure or even . Discussed the rationale for individualized medication regimen and the effects of their BP. Instructed to seek emergent care if the patient develops a headache, blurry vision, dizziness, chest pain or pressure. Total time spent today was 30 minutes of which greater than 50% was spent on coordinating and counseling Patient has been found to be obese with a BMI of (49). Patient has class (3) obesity. We are a board certified obesity and weight management practice Patient has trialed behavioral modification, dietary restrictions and exercise for a minimum of 6 months The most recent [place] [employer] of clinical endocrinologists and [place] [employer] of endocrin[employer] guidelines recommend patients who have overweight BMI or obesity BMI, who also have metabolic syndrome, prediabetes, HLD, and other comorbidities or at risk of developing type 2 diabetes should aim for a weight loss goal of at least 10% of the baseline body weight Patient counseled regarding effects of GLP/GIP-1 agonists, and other FDA approved wgt loss meds with regards to a multifactorial approach of weight loss as mentioned above and not solely appetite suppression. We have discussed the mechanism of GLP-1's/GIP, dual incretins, appetitite suppressants I think this would be fantastic option for her given her metabolic workup and body composition We have discussed the risks and benefits and side effects including/and not limited to Sarcopenia, intestinal obstruction, constipation, nausea, lethargy, headache Discussed importance of protein consumption for muscle maintenance as well as strength and resistance training ,probiotics, B12 complex biotin , iron and other nutrients, To help avoid telogen effluvium We have discussed the lifelong requirement of nutritional supplementation And adherence to an exercise regimen as well as importance of follow-up The patient understands and agrees There is no history of medullary thyroid cancer or multiple endocrine neoplasia There is also no history of cardiovascular disease, hypertension, palpitations, or arrhythmias In the setting of potential stimulant/amphetamin e use such as phentermine We have also discussed risks and benefits, and the use of compounded medications to help offset the national shortages as well as financial implications vs trade name drugs Of note, some information is being carried forward from prior records for informational purposes only and is being cited so that efficiency, safety and quality of the patient's care is not compromised This note was prepared using voice recognition software and direct typing Please excuse inadvertent general road foreman or typing errors, or uncorrected word substitutions Although every attempt has been made by the provider to proofread this document, occasional misspellings and typographical errors may still be present Due to the previous pandemic, and the use of personal protective equipment (PPE) This may decrease voice recognition accuracy Inadvertent general road foreman errors may occur 02/24/2024 Non-recurrent acute serous otitis media of left ear (ICD-10 - H65.02) Antibiotic stewardship is the effort to measure and improve how antibiotics are prescribed by clinicians and used by patients. Improving antibiotic prescribing and use is critical to effectively treat infections via evidenced based practice, protect patients from harms caused by unnecessary antibiotic use, and combat antibiotic resistance. What is an example of antibiotic stewardship? That includes prescribing antibiotics only when they are needed (i.e., for bacterial infections, not viral ones), prescribing the appropriate antibiotics for the diagnosed infection, and prescribing the right dose and duration of antibiotic treatment, among other things. Of note, some information is being carried forward from prior records for informational purposes only and is being cited so that efficiency, safety and quality of the patient's care is not compromised This note was prepared using voice recognition software and direct typing Please excuse inadvertent general road foreman or typing errors, or uncorrected word substitutions Although every attempt has been made by the provider to proofread this document, occasional misspellings and typographical errors may still be present Due to the previous pandemic, and the use of personal protective equipment (PPE) This may decrease voice recognition accuracy Inadvertent general road foreman errors may occur 02/24/2024 Acute COVID-19 (ICD-10 - U07.1) Antibiotic stewardship is the effort to measure and improve how antibiotics are prescribed by clinicians and used by patients. Improving antibiotic prescribing and use is critical to effectively treat infections via evidenced based practice, protect patients from harms caused by unnecessary antibiotic use, and combat antibiotic resistance. What is an example of antibiotic stewardship? That includes prescribing antibiotics only when they are needed (i.e., for bacterial infections, not viral ones), prescribing the appropriate antibiotics for the diagnosed infection, and prescribing the right dose and duration of antibiotic treatment, among other things. Of note, some information is being carried forward from prior records for informational purposes only and is being cited so that efficiency, safety and quality of the patient's care is not compromised This note was prepared using voice recognition software and direct typing Please excuse inadvertent general road foreman or typing errors, or uncorrected word substitutions Although every attempt has been made by the provider to proofread this document, occasional misspellings and typographical errors may still be present Due to the previous pandemic, and the use of personal protective equipment (PPE) This may decrease voice recognition accuracy Inadvertent general road foreman errors may occur 05/06/2024 Hypothyroidism, unspecified (ICD-10 - E03.9) 05/28/2024 Upper respiratory tract infection, unspecified type (ICD-10 - J06.9) Eladio is a 43-year-old male with a PMH of asthma, HTN, seasonal allergies, hypothyroidism that presents accompanied by mom for evaluation of chest congestion, productive cough, nasal congestion, and episodic diarrhea since 05/14/2024. Using OTC Mucinex with moderate improvement. On presentation the patient is vitally stable. Physical exam reveals mild erythema of the right TM as well as the posterior pharynx. Exam otherwise WNL. Lungs CTA. Given duration of symptoms, plan to treat empirically with antibiotic. Rx for azithromycin Dosepak sent to pharmacy. Reviewed proper use and side effects including but not limited to GI upset. Also provided Rx for benzonatate 100 mg up to 3 times daily as needed for cough and Flonase given patient's congestion/mildly discomfort. Patient understands to use inhalers as prescribed. Patient encouraged to continue symptomatic treatment with rest, fluids, steam, throat lozenges, OTC Tylenol or ibuprofen, and OTC decongestions as needed. Patient understands to return to office should symptoms not improve despite treatment and to seek immediate medical attention should he develop any chest pain, shortness of breath, difficulty breathing. All questions answered to the patient's satisfaction. Patient demonstrates understanding of diagnosis and treatments discussed. Follow-up at next scheduled appointment, sooner should any questions/concerns arise. Case discussed with collaborating physician Ayo Carrera who has reviewed the assessment/plan. Chart, medications, labs, and vital signs reviewed. Dictation completed with the use of [employer] voice recognition software, prone to medical misidentifications and grammatical errors. All errors are unintentional. Although the practitioner does try to identify and correct errors, some may be present. Please do not hesitate to contact the practitioner for clarification. 07/10/2024 Essential (primary) hypertension (ICD-10 - I10) 07/28/2024 Mixed hyperlipidemia (ICD-10 - E78.2) Acute Concerns/Problem List: 07/28/2024 Of note, some information is being carried forward from prior records for informational purposes only and is being cited so that efficiency, safety and quality of the patient's care is not compromised This note was prepared using voice recognition software and direct typing Please excuse inadvertent general road foreman or typing errors, or uncorrected word substitutions Although every attempt has been made by the provider to proofread this document, occasional misspellings and typographical errors may still be present Due to the previous pandemic, and the use of personal protective equipment (PPE) This may decrease voice recognition accuracy Inadvertent general road foreman errors may occur 07/28/2024 Essential (primary) hypertension (ICD-10 - I10) Acute Concerns/Problem List: 07/28/2024 Of note, some information is being carried forward from prior records for informational purposes only and is being cited so that efficiency, safety and quality of the patient's care is not compromised This note was prepared using voice recognition software and direct typing Please excuse inadvertent general road foreman or typing errors, or uncorrected word substitutions Although every attempt has been made by the provider to proofread this document, occasional misspellings and typographical errors may still be present Due to the previous pandemic, and the use of personal protective equipment (PPE) This may decrease voice recognition accuracy Inadvertent general road foreman errors may occur 08/05/2024 Essential (primary) hypertension (ICD-10 - I10) Eladio is a 43-year-old male with history of asthma, hypertension, seasonal allergies, and hypothyroidism who presents today for urgent care visit for upper respiratory symptoms that began yesterday. Symptoms include sneezing, runny nose, productive cough, congestion, chest tightness, and bodyaches. Reports no shortness of breath or dyspnea on exertion, no chest pain, no GI symptoms. Up-to-date on influenza vaccine, RSV, and COVID vaccines as well as pneumonia immunization. On physical exam patient is well-appearing and in no acute distress. Blood pressure is elevated 146/92, heart rate 87, O2 saturation 97%, found to have a fever of 101.2 degrees F. Cardiopulmonary exam unremarkable. No lymphadenopathy or lymphadenitis appreciated upon palpation bilaterally. Oropharynx nonerythematous and nonedematous without tonsillar hypertrophy, exudates, or uvular deviation. 2+ and equal radial pulses bilaterally. Viral swab obtained in office and is negative for COVID, flu, and RSV. Patient informed verbally of these results. Discussed that symptoms likely related to a viral infection. Discussed importance of conservative measures at this time including Tylenol or ibuprofen for fever reduction as well as for pain control. Discussed importance of hydration as well as nutrition as well as optimal rest. For cough we will refill prescription for Tessalon Perles 100 mg 1 capsule 3 times daily as needed for cough. Described proper use of the medication and potential side effect profile. Discussed red flag signs that may require ED evaluation including but not limited to intractable fever, chest pain, difficulty breathing, intractable vomiting or diarrhea, dizziness, or weakness. Patient understanding, all patient questions answered at this time. # Asthma: Patient reports no shortness of breath. Continue albuterol sulfate 1-2 puffs as needed every 6 hours for shortness of breath or wheezing. # Hypothyroidism: Continue levothyroxine 75 mcg once daily in the morning on empty stomach and before other medications. # Hypertension: Continue lisinopril 5 mg daily. # Hyperlipidemia: Lipid panel obtained on 12/16/2023 with values including cholesterol 197, triglycerides 122, HDL 48, and LDL 125. Continue pravastatin 40 mg daily. # Gout: Stable at this time. Continue allopurinol 300 mg once daily. Continue colchicine 0.6 mg once daily. # Seasonal allergies: Continue cetirizine 10 mg once daily. Continue Flonase 1 spray in each nostril daily. Advised may need to use more often now given asked exacerbation. Will continue to monitor. # Vitamin D deficiency: Vitamin D level decreased at 16 on 12/16/2023: Continue vitamin D 5000 units once weekly. # Prediabetes: Hemoglobin A1c obtained on 12/16/23 to 6.1%. Continue metformin 750 mg once daily with evening meal. Will continue to monitor. All questions have been answered to patient's satisfaction. Patient verbalized understanding of diagnosis and treatments explained. Advised to call sooner prior to next visit it any questions/concerns arise. Case discussed with collaborating physician Trevor Carrera who reviewed the assessment and plan. Chart, medications, labs, vital signs reviewed. Dictation was accomplished with the use of [employer] voice recognition software, which is prone to medical misidentifications and grammatical errors. This are unintentional and the practitioner does try to identify and correct these, but some could still be present. Please do not hesitate to contact practitioner for clarification. 08/05/2024 Persistent cough (ICD-10 - R05.3) Eladio is a 43-year-old male with history of asthma, hypertension, seasonal allergies, and hypothyroidism who presents today for urgent care visit for upper respiratory symptoms that began yesterday. Symptoms include sneezing, runny nose, productive cough, congestion, chest tightness, and bodyaches. Reports no shortness of breath or dyspnea on exertion, no chest pain, no GI symptoms. Up-to-date on influenza vaccine, RSV, and COVID vaccines as well as pneumonia immunization. On physical exam patient is well-appearing and in no acute distress. Blood pressure is elevated 146/92, heart rate 87, O2 saturation 97%, found to have a fever of 101.2 degrees F. Cardiopulmonary exam unremarkable. No lymphadenopathy or lymphadenitis appreciated upon palpation bilaterally. Oropharynx nonerythematous and nonedematous without tonsillar hypertrophy, exudates, or uvular deviation. 2+ and equal radial pulses bilaterally. Viral swab obtained in office and is negative for COVID, flu, and RSV. Patient informed verbally of these results. Discussed that symptoms likely related to a viral infection. Discussed importance of conservative measures at this time including Tylenol or ibuprofen for fever reduction as well as for pain control. Discussed importance of hydration as well as nutrition as well as optimal rest. For cough we will refill prescription for Tessalon Perles 100 mg 1 capsule 3 times daily as needed for cough. Described proper use of the medication and potential side effect profile. Discussed red flag signs that may require ED evaluation including but not limited to intractable fever, chest pain, difficulty breathing, intractable vomiting or diarrhea, dizziness, or weakness. Patient understanding, all patient questions answered at this time. # Asthma: Patient reports no shortness of breath. Continue albuterol sulfate 1-2 puffs as needed every 6 hours for shortness of breath or wheezing. # Hypothyroidism: Continue levothyroxine 75 mcg once daily in the morning on empty stomach and before other medications. # Hypertension: Continue lisinopril 5 mg daily. # Hyperlipidemia: Lipid panel obtained on 12/16/2023 with values including cholesterol 197, triglycerides 122, HDL 48, and LDL 125. Continue pravastatin 40 mg daily. # Gout: Stable at this time. Continue allopurinol 300 mg once daily. Continue colchicine 0.6 mg once daily. # Seasonal allergies: Continue cetirizine 10 mg once daily. Continue Flonase 1 spray in each nostril daily. Advised may need to use more often now given asked exacerbation. Will continue to monitor. # Vitamin D deficiency: Vitamin D level decreased at 16 on 12/16/2023: Continue vitamin D 5000 units once weekly. # Prediabetes: Hemoglobin A1c obtained on 12/16/23 to 6.1%. Continue metformin 750 mg once daily with evening meal. Will continue to monitor. All questions have been answered to patient's satisfaction. Patient verbalized understanding of diagnosis and treatments explained. Advised to call sooner prior to next visit it any questions/concerns arise. Case discussed with collaborating physician Trevor Carrera who reviewed the assessment and plan. Chart, medications, labs, vital signs reviewed. Dictation was accomplished with the use of [employer] voice recognition software, which is prone to medical misidentifications and grammatical errors. This are unintentional and the practitioner does try to identify and correct these, but some could still be present. Please do not hesitate to contact practitioner for clarification. 09/09/2024 Adult general medical exam (ICD-10 - Z00.00) Acute Concerns/Problem List: 09/09/2024 Lets update labs Talked about weight loss strategies including medication however has Medicare unfortunately Discussed perhaps switching to [facility] Thyroid function in May seems stable Clotrimazole for balanitis Discussed that he needs to call colorectal surgery back Of note, some information is being carried forward from prior records for informational purposes only and is being cited so that efficiency, safety and quality of the patient's care is not compromised This note was prepared using voice recognition software and direct typing Please excuse inadvertent general road foreman or typing errors, or uncorrected word substitutions Although every attempt has been made by the provider to proofread this document, occasional misspellings and typographical errors may still be present Due to the previous pandemic, and the use of personal protective equipment (PPE) This may decrease voice recognition accuracy Inadvertent general road foreman errors may occur 09/09/2024 Encounter for screening for depression (ICD-10 - Z13.31) Acute Concerns/Problem List: 09/09/2024 Lets update labs Talked about weight loss strategies including medication however has Medicare unfortunately Discussed perhaps switching to [facility] Thyroid function in May seems stable Clotrimazole for balanitis Discussed that he needs to call colorectal surgery back Of note, some information is being carried forward from prior records for informational purposes only and is being cited so that efficiency, safety and quality of the patient's care is not compromised This note was prepared using voice recognition software and direct typing Please excuse inadvertent general road foreman or typing errors, or uncorrected word substitutions Although every attempt has been made by the provider to proofread this document, occasional misspellings and typographical errors may still be present Due to the previous pandemic, and the use of personal protective equipment (PPE) This may decrease voice recognition accuracy Inadvertent general road foreman errors may occur 09/09/2024 Adult general medical exam (ICD-10 - Z00.00) 09/14/2024 Acute COVID-19 (ICD-10 - U07.1) 44-year-old male with a PMH of asthma, HTN, seasonal allergies, hypothyroid, presents for evaluation of sick symptoms including productive cough, congestion, ear discomfort, body aches, and subjective fever since x 3 days. Home COVID-positive 09/12/2024. On presentation patient is vitally stable. Physical exam reveals mild pharyngeal erythema/edema. No visible exudate. Lungs CTA. -Exam otherwise WNL. Swab for COVID/flu/RSV obtained in office which revealed. Given positive home COVID in the last 3 days plan to treat with Paxlovid. Reviewed proper use and side effects including but not limited to unpleasant taste in mouth/diarrhea. He understands cannot take any colchicine while completing Paxlovid course. He furthermore understands to avoid use of pravastatin while completing course and 7 days thereafter.The patient is encouraged to continue symptomatic treatment with rest, fluids, inhalers, Tylenol/ibuprofen as needed, and OTC decongestants as needed. Prescribed guaifenesin -patient understand is available OTC if not covered by insurance. All questions answered to the patient's satisfaction. Patient demonstrates understanding of diagnosis and treatments discussed. Follow-up at next scheduled appointment, sooner should symptoms not improve despite treatment or should symptoms worsen. Case discussed with collaborating physician Ayo Carrera who has reviewed the assessment/plan. Chart, medications, labs, and vital signs reviewed. Dictation completed with the use of [employer] voice recognition software, prone to medical misidentifications and grammatical errors. All errors are unintentional. Although the practitioner does try to identify and correct errors, some may be present. Please do not hesitate to contact the practitioner for clarification. 07/29/2024 Hypothyroidism, unspecified (ICD-10 - E03.9) 03/30/2024 Acute cough (ICD-10 - R05.1) Eladio is a 43-year-old male history of asthma, hyperlipidemia, hypertension, prediabetes who presents the office today for urgent care visit for asthma exacerbation. Reports experiencing coughing and sneezing with associated wheezing and chest tightness over the past week. Believes that season change may be contributory to asthma flare. Has been using his albuterol inhaler regularly and has been using ipratropium albuterol nebulizer treatment every 6 hours without relief of wheezing. He reports no fevers, chills, shortness of breath, chest pain, abdominal pain, nausea, vomiting, or diarrhea. Recently found to have COVID 3 to 4 weeks ago at which time he was treated with Paxlovid. He is up-to-date on RSV, pneumonia, flu, and RSV vaccines. On physical exam patient is well-appearing in no acute distress. Vital signs are within normal limits with blood pressure 124/80, heart rate 67, and oxygen saturation 95% on room air. Normal respiratory effort appreciated. Cardiac exam unremarkable. Mild inspiratory wheezes appreciated in bilateral lung [place]. No evidence of stridor, rhonchi, or rales appreciated bilaterally. Given clinical presentation I suspect a mild asthma constipation. Discussed low-dose inhaled steroids however patient states that he has trouble using an inhaled device, has used low-dose prednisone before in the past for exacerbations which has been helpful. Will prescribe prednisone 20 mg to be taken twice daily for 7 days. Will also refer the patient to pulmonology for continued management of asthma including use of pulmonary function testing as needed. Advised return to the office sooner if symptoms do not improve. Advised to go to the emergency department if he develops fever, difficulty breathing, chest pain, tractable vomiting or diarrhea, dizziness, or weakness. Patient demonstrated understanding. All patient questions answered at this time. # Hypertension: Blood her stable in office today 124/80. Continue lisinopril 5 mg once daily. # Hyperlipidemia: Lipid panel obtained on 12/16/2023 with values including cholesterol 197, triglycerides 122, HDL 48, and LDL 125. Continue pravastatin sodium 40 mg once daily. Will continue to monitor. # Gout: Stable at this time. Continue allopurinol 300 mg once daily. Continue colchicine 0.6 mg once daily. # Seasonal allergies: Continue cetirizine 10 mg once daily. Continue Flonase 1 spray in each nostril daily. Advised may need to use more often now given asked exacerbation. Will continue to monitor. # Vitamin D deficiency: Vitamin D level decreased at 16 on 12/16/2023: Continue vitamin D 5000 units once weekly. # Prediabetes: Hemoglobin A1c obtained on 12/16/23 to 6.1%. Continue metformin 750 mg once daily with evening meal. Will continue to monitor. All questions have been answered to patient's satisfaction. Patient verbalized understanding of diagnosis and treatments explained. Advised to call sooner prior to next visit it any questions/concerns arise. Case discussed with collaborating physician Trevor Carrera who reviewed the assessment and plan. Chart, medications, labs, vital signs reviewed. Dictation was accomplished with the use of [employer] voice recognition software, which is prone to medical misidentifications and grammatical errors. This are unintentional and the practitioner does try to identify and correct these, but some could still be present. Please do not hesitate to contact practitioner for clarification. 03/30/2024 Mild intermittent asthma with exacerbation (ICD-10 - J45.21) Eladio is a 43-year-old male history of asthma, hyperlipidemia, hypertension, prediabetes who presents the office today for urgent care visit for asthma exacerbation. Reports experiencing coughing and sneezing with associated wheezing and chest tightness over the past week. Believes that season change may be contributory to asthma flare. Has been using his albuterol inhaler regularly and has been using ipratropium albuterol nebulizer treatment every 6 hours without relief of wheezing. He reports no fevers, chills, shortness of breath, chest pain, abdominal pain, nausea, vomiting, or diarrhea. Recently found to have COVID 3 to 4 weeks ago at which time he was treated with Paxlovid. He is up-to-date on RSV, pneumonia, flu, and RSV vaccines. On physical exam patient is well-appearing in no acute distress. Vital signs are within normal limits with blood pressure 124/80, heart rate 67, and oxygen saturation 95% on room air. Normal respiratory effort appreciated. Cardiac exam unremarkable. Mild inspiratory wheezes appreciated in bilateral lung [place]. No evidence of stridor, rhonchi, or rales appreciated bilaterally. Given clinical presentation I suspect a mild asthma constipation. Discussed low-dose inhaled steroids however patient states that he has trouble using an inhaled device, has used low-dose prednisone before in the past for exacerbations which has been helpful. Will prescribe prednisone 20 mg to be taken twice daily for 7 days. Will also refer the patient to pulmonology for continued management of asthma including use of pulmonary function testing as needed. Advised return to the office sooner if symptoms do not improve. Advised to go to the emergency department if he develops fever, difficulty breathing, chest pain, tractable vomiting or diarrhea, dizziness, or weakness. Patient demonstrated understanding. All patient questions answered at this time. # Hypertension: Blood her stable in office today 124/80. Continue lisinopril 5 mg once daily. # Hyperlipidemia: Lipid panel obtained on 12/16/2023 with values including cholesterol 197, triglycerides 122, HDL 48, and LDL 125. Continue pravastatin sodium 40 mg once daily. Will continue to monitor. # Gout: Stable at this time. Continue allopurinol 300 mg once daily. Continue colchicine 0.6 mg once daily. # Seasonal allergies: Continue cetirizine 10 mg once daily. Continue Flonase 1 spray in each nostril daily. Advised may need to use more often now given asked exacerbation. Will continue to monitor. # Vitamin D deficiency: Vitamin D level decreased at 16 on 12/16/2023: Continue vitamin D 5000 units once weekly. # Prediabetes: Hemoglobin A1c obtained on 12/16/23 to 6.1%. Continue metformin 750 mg once daily with evening meal. Will continue to monitor. All questions have been answered to patient's satisfaction. Patient verbalized understanding of diagnosis and treatments explained. Advised to call sooner prior to next visit it any questions/concerns arise. Case discussed with collaborating physician Trevor Carrera who reviewed the assessment and plan. Chart, medications, labs, vital signs reviewed. Dictation was accomplished with the use of [employer] voice recognition software, which is prone to medical misidentifications and grammatical errors. This are unintentional and the practitioner does try to identify and correct these, but some could still be present. Please do not hesitate to contact practitioner for clarification. 07/29/2024 Hyperlipidemia, unspecified hyperlipidemia type (ICD-10 - E78.5) 03/30/2024 Sneezing (ICD-10 - R06.7) Eladio is a 43-year-old male history of asthma, hyperlipidemia, hypertension, prediabetes who presents the office today for urgent care visit for asthma exacerbation. Reports experiencing coughing and sneezing with associated wheezing and chest tightness over the past week. Believes that season change may be contributory to asthma flare. Has been using his albuterol inhaler regularly and has been using ipratropium albuterol nebulizer treatment every 6 hours without relief of wheezing. He reports no fevers, chills, shortness of breath, chest pain, abdominal pain, nausea, vomiting, or diarrhea. Recently found to have COVID 3 to 4 weeks ago at which time he was treated with Paxlovid. He is up-to-date on RSV, pneumonia, flu, and RSV vaccines. On physical exam patient is well-appearing in no acute distress. Vital signs are within normal limits with blood pressure 124/80, heart rate 67, and oxygen saturation 95% on room air. Normal respiratory effort appreciated. Cardiac exam unremarkable. Mild inspiratory wheezes appreciated in bilateral lung [place]. No evidence of stridor, rhonchi, or rales appreciated bilaterally. Given clinical presentation I suspect a mild asthma constipation. Discussed low-dose inhaled steroids however patient states that he has trouble using an inhaled device, has used low-dose prednisone before in the past for exacerbations which has been helpful. Will prescribe prednisone 20 mg to be taken twice daily for 7 days. Will also refer the patient to pulmonology for continued management of asthma including use of pulmonary function testing as needed. Advised return to the office sooner if symptoms do not improve. Advised to go to the emergency department if he develops fever, difficulty breathing, chest pain, tractable vomiting or diarrhea, dizziness, or weakness. Patient demonstrated understanding. All patient questions answered at this time. # Hypertension: Blood her stable in office today 124/80. Continue lisinopril 5 mg once daily. # Hyperlipidemia: Lipid panel obtained on 12/16/2023 with values including cholesterol 197, triglycerides 122, HDL 48, and LDL 125. Continue pravastatin sodium 40 mg once daily. Will continue to monitor. # Gout: Stable at this time. Continue allopurinol 300 mg once daily. Continue colchicine 0.6 mg once daily. # Seasonal allergies: Continue cetirizine 10 mg once daily. Continue Flonase 1 spray in each nostril daily. Advised may need to use more often now given asked exacerbation. Will continue to monitor. # Vitamin D deficiency: Vitamin D level decreased at 16 on 12/16/2023: Continue vitamin D 5000 units once weekly. # Prediabetes: Hemoglobin A1c obtained on 12/16/23 to 6.1%. Continue metformin 750 mg once daily with evening meal. Will continue to monitor. All questions have been answered to patient's satisfaction. Patient verbalized understanding of diagnosis and treatments explained. Advised to call sooner prior to next visit it any questions/concerns arise. Case discussed with collaborating physician Trevor Carrera who reviewed the assessment and plan. Chart, medications, labs, vital signs reviewed. Dictation was accomplished with the use of [employer] voice recognition software, which is prone to medical misidentifications and grammatical errors. This are unintentional and the practitioner does try to identify and correct these, but some could still be present. Please do not hesitate to contact practitioner for clarification. 09/09/2024 Encounter for screening for other disorder (ICD-10 - Z13.89) Acute Concerns/Problem List: 09/09/2024 Lets update labs Talked about weight loss strategies including medication however has Medicare unfortunately Discussed perhaps switching to [facility] Thyroid function in May seems stable Clotrimazole for balanitis Discussed that he needs to call colorectal surgery back Of note, some information is being carried forward from prior records for informational purposes only and is being cited so that efficiency, safety and quality of the patient's care is not compromised This note was prepared using voice recognition software and direct typing Please excuse inadvertent general road foreman or typing errors, or uncorrected word substitutions Although every attempt has been made by the provider to proofread this document, occasional misspellings and typographical errors may still be present Due to the previous pandemic, and the use of personal protective equipment (PPE) This may decrease voice recognition accuracy Inadvertent general road foreman errors may occur 09/09/2024 Encounter for screening for lipoid disorders (ICD-10 - Z13.220) 08/05/2024 Mild intermittent asthma, uncomplicated (ICD-10 - J45.20) Eladio is a 43-year-old male with history of asthma, hypertension, seasonal allergies, and hypothyroidism who presents today for urgent care visit for upper respiratory symptoms that began yesterday. Symptoms include sneezing, runny nose, productive cough, congestion, chest tightness, and bodyaches. Reports no shortness of breath or dyspnea on exertion, no chest pain, no GI symptoms. Up-to-date on influenza vaccine, RSV, and COVID vaccines as well as pneumonia immunization. On physical exam patient is well-appearing and in no acute distress. Blood pressure is elevated 146/92, heart rate 87, O2 saturation 97%, found to have a fever of 101.2 degrees F. Cardiopulmonary exam unremarkable. No lymphadenopathy or lymphadenitis appreciated upon palpation bilaterally. Oropharynx nonerythematous and nonedematous without tonsillar hypertrophy, exudates, or uvular deviation. 2+ and equal radial pulses bilaterally. Viral swab obtained in office and is negative for COVID, flu, and RSV. Patient informed verbally of these results. Discussed that symptoms likely related to a viral infection. Discussed importance of conservative measures at this time including Tylenol or ibuprofen for fever reduction as well as for pain control. Discussed importance of hydration as well as nutrition as well as optimal rest. For cough we will refill prescription for Tessalon Perles 100 mg 1 capsule 3 times daily as needed for cough. Described proper use of the medication and potential side effect profile. Discussed red flag signs that may require ED evaluation including but not limited to intractable fever, chest pain, difficulty breathing, intractable vomiting or diarrhea, dizziness, or weakness. Patient understanding, all patient questions answered at this time. # Asthma: Patient reports no shortness of breath. Continue albuterol sulfate 1-2 puffs as needed every 6 hours for shortness of breath or wheezing. # Hypothyroidism: Continue levothyroxine 75 mcg once daily in the morning on empty stomach and before other medications. # Hypertension: Continue lisinopril 5 mg daily. # Hyperlipidemia: Lipid panel obtained on 12/16/2023 with values including cholesterol 197, triglycerides 122, HDL 48, and LDL 125. Continue pravastatin 40 mg daily. # Gout: Stable at this time. Continue allopurinol 300 mg once daily. Continue colchicine 0.6 mg once daily. # Seasonal allergies: Continue cetirizine 10 mg once daily. Continue Flonase 1 spray in each nostril daily. Advised may need to use more often now given asked exacerbation. Will continue to monitor. # Vitamin D deficiency: Vitamin D level decreased at 16 on 12/16/2023: Continue vitamin D 5000 units once weekly. # Prediabetes: Hemoglobin A1c obtained on 12/16/23 to 6.1%. Continue metformin 750 mg once daily with evening meal. Will continue to monitor. All questions have been answered to patient's satisfaction. Patient verbalized understanding of diagnosis and treatments explained. Advised to call sooner prior to next visit it any questions/concerns arise. Case discussed with collaborating physician Trevor Carrera who reviewed the assessment and plan. Chart, medications, labs, vital signs reviewed. Dictation was accomplished with the use of [employer] voice recognition software, which is prone to medical misidentifications and grammatical errors. This are unintentional and the practitioner does try to identify and correct these, but some could still be present. Please do not hesitate to contact practitioner for clarification. 07/28/2024 Morbid (severe) obesity due to excess calories (ICD-10 - E66.01) Acute Concerns/Problem List: 07/28/2024 Of note, some information is being carried forward from prior records for informational purposes only and is being cited so that efficiency, safety and quality of the patient's care is not compromised This note was prepared using voice recognition software and direct typing Please excuse inadvertent general road foreman or typing errors, or uncorrected word substitutions Although every attempt has been made by the provider to proofread this document, occasional misspellings and typographical errors may still be present Due to the previous pandemic, and the use of personal protective equipment (PPE) This may decrease voice recognition accuracy Inadvertent general road foreman errors may occur 12/27/2023 Mixed hyperlipidemia (ICD-10 - E78.2) Acute Concerns/Problem List: 12/27/2023 Chronic conditions are stable Will refer for colorectal, Please contact colorectal surgery number was given today Metformin for prediabetic state and obesity Updated labs are reviewed 4 months follow-up Reviewed with patient the importance of medication and treatment plan compliance with BP goal of less then 140/90 per JNC 8 guidelines based on patient's age. This will ensure optimal health outcomes and prevent target organ damage. Made aware that uncontrolled hypertension may be silent and result in a stroke, heart attack, renal failure or even . Discussed the rationale for individualized medication regimen and the effects of their BP. Instructed to seek emergent care if the patient develops a headache, blurry vision, dizziness, chest pain or pressure. Total time spent today was 30 minutes of which greater than 50% was spent on coordinating and counseling Patient has been found to be obese with a BMI of (49). Patient has class (3) obesity. We are a board certified obesity and weight management practice Patient has trialed behavioral modification, dietary restrictions and exercise for a minimum of 6 months The most recent [place] [employer] and [place] [employer] guidelines recommend patients who have overweight BMI or obesity BMI, who also have metabolic syndrome, prediabetes, HLD, and other comorbidities or at risk of developing type 2 diabetes should aim for a weight loss goal of at least 10% of the baseline body weight Patient counseled regarding effects of GLP/GIP-1 agonists, and other FDA approved wgt loss meds with regards to a multifactorial approach of weight loss as mentioned above and not solely appetite suppression. We have discussed the mechanism of GLP-1's/GIP, dual incretins, appetitite suppressants I think this would be fantastic option for her given her metabolic workup and body composition We have discussed the risks and benefits and side effects including/and not limited to Sarcopenia, intestinal obstruction, constipation, nausea, lethargy, headache Discussed importance of protein consumption for muscle maintenance as well as strength and resistance training ,probiotics, B12 complex biotin , iron and other nutrients, To help avoid telogen effluvium We have discussed the lifelong requirement of nutritional supplementation And adherence to an exercise regimen as well as importance of follow-up The patient understands and agrees There is no history of medullary thyroid cancer or multiple endocrine neoplasia There is also no history of cardiovascular disease, hypertension, palpitations, or arrhythmias In the setting of potential stimulant/amphetamin e use such as phentermine We have also discussed risks and benefits, and the use of compounded medications to help offset the national shortages as well as financial implications vs trade name drugs Of note, some information is being carried forward from prior records for informational purposes only and is being cited so that efficiency, safety and quality of the patient's care is not compromised This note was prepared using voice recognition software and direct typing Please excuse inadvertent general road foreman or typing errors, or uncorrected word substitutions Although every attempt has been made by the provider to proofread this document, occasional misspellings and typographical errors may still be present Due to the previous pandemic, and the use of personal protective equipment (PPE) This may decrease voice recognition accuracy Inadvertent general road foreman errors may occur 12/27/2023 Morbid (severe) obesity due to excess calories (ICD-10 - E66.01) Acute Concerns/Problem List: 12/27/2023 Chronic conditions are stable Will refer for colorectal, Please contact colorectal surgery number was given today Metformin for prediabetic state and obesity Updated labs are reviewed 4 months follow-up Reviewed with patient the importance of medication and treatment plan compliance with BP goal of less then 140/90 per JNC 8 guidelines based on patient's age. This will ensure optimal health outcomes and prevent target organ damage. Made aware that uncontrolled hypertension may be silent and result in a stroke, heart attack, renal failure or even . Discussed the rationale for individualized medication regimen and the effects of their BP. Instructed to seek emergent care if the patient develops a headache, blurry vision, dizziness, chest pain or pressure. Total time spent today was 30 minutes of which greater than 50% was spent on coordinating and counseling Patient has been found to be obese with a BMI of (49). Patient has class (3) obesity. We are a board certified obesity and weight management practice Patient has trialed behavioral modification, dietary restrictions and exercise for a minimum of 6 months The most recent [place] [employer]ocrin[employer] and [place] [employer] guidelines recommend patients who have overweight BMI or obesity BMI, who also have metabolic syndrome, prediabetes, HLD, and other comorbidities or at risk of developing type 2 diabetes should aim for a weight loss goal of at least 10% of the baseline body weight Patient counseled regarding effects of GLP/GIP-1 agonists, and other FDA approved wgt loss meds with regards to a multifactorial approach of weight loss as mentioned above and not solely appetite suppression. We have discussed the mechanism of GLP-1's/GIP, dual incretins, appetitite suppressants I think this would be fantastic option for her given her metabolic workup and body composition We have discussed the risks and benefits and side effects including/and not limited to Sarcopenia, intestinal obstruction, constipation, nausea, lethargy, headache Discussed importance of protein consumption for muscle maintenance as well as strength and resistance training ,probiotics, B12 complex biotin , iron and other nutrients, To help avoid telogen effluvium We have discussed the lifelong requirement of nutritional supplementation And adherence to an exercise regimen as well as importance of follow-up The patient understands and agrees There is no history of medullary thyroid cancer or multiple endocrine neoplasia There is also no history of cardiovascular disease, hypertension, palpitations, or arrhythmias In the setting of potential stimulant/amphetamin e use such as phentermine We have also discussed risks and benefits, and the use of compounded medications to help offset the national shortages as well as financial implications vs trade name drugs Of note, some information is being carried forward from prior records for informational purposes only and is being cited so that efficiency, safety and quality of the patient's care is not compromised This note was prepared using voice recognition software and direct typing Please excuse inadvertent general road foreman or typing errors, or uncorrected word substitutions Although every attempt has been made by the provider to proofread this document, occasional misspellings and typographical errors may still be present Due to the previous pandemic, and the use of personal protective equipment (PPE) This may decrease voice recognition accuracy Inadvertent general road foreman errors may occur 07/28/2024 Mild intermittent asthma, uncomplicated (ICD-10 - J45.20) Acute Concerns/Problem List: 07/28/2024 Of note, some information is being carried forward from prior records for informational purposes only and is being cited so that efficiency, safety and quality of the patient's care is not compromised This note was prepared using voice recognition software and direct typing Please excuse inadvertent general road foreman or typing errors, or uncorrected word substitutions Although every attempt has been made by the provider to proofread this document, occasional misspellings and typographical errors may still be present Due to the previous pandemic, and the use of personal protective equipment (PPE) This may decrease voice recognition accuracy Inadvertent general road foreman errors may occur 08/05/2024 Acquired hypothyroidism (ICD-10 - E03.9) Eladio is a 43-year-old male with history of asthma, hypertension, seasonal allergies, and hypothyroidism who presents today for urgent care visit for upper respiratory symptoms that began yesterday. Symptoms include sneezing, runny nose, productive cough, congestion, chest tightness, and bodyaches. Reports no shortness of breath or dyspnea on exertion, no chest pain, no GI symptoms. Up-to-date on influenza vaccine, RSV, and COVID vaccines as well as pneumonia immunization. On physical exam patient is well-appearing and in no acute distress. Blood pressure is elevated 146/92, heart rate 87, O2 saturation 97%, found to have a fever of 101.2 degrees F. Cardiopulmonary exam unremarkable. No lymphadenopathy or lymphadenitis appreciated upon palpation bilaterally. Oropharynx nonerythematous and nonedematous without tonsillar hypertrophy, exudates, or uvular deviation. 2+ and equal radial pulses bilaterally. Viral swab obtained in office and is negative for COVID, flu, and RSV. Patient informed verbally of these results. Discussed that symptoms likely related to a viral infection. Discussed importance of conservative measures at this time including Tylenol or ibuprofen for fever reduction as well as for pain control. Discussed importance of hydration as well as nutrition as well as optimal rest. For cough we will refill prescription for Tessalon Perles 100 mg 1 capsule 3 times daily as needed for cough. Described proper use of the medication and potential side effect profile. Discussed red flag signs that may require ED evaluation including but not limited to intractable fever, chest pain, difficulty breathing, intractable vomiting or diarrhea, dizziness, or weakness. Patient understanding, all patient questions answered at this time. # Asthma: Patient reports no shortness of breath. Continue albuterol sulfate 1-2 puffs as needed every 6 hours for shortness of breath or wheezing. # Hypothyroidism: Continue levothyroxine 75 mcg once daily in the morning on empty stomach and before other medications. # Hypertension: Continue lisinopril 5 mg daily. # Hyperlipidemia: Lipid panel obtained on 12/16/2023 with values including cholesterol 197, triglycerides 122, HDL 48, and LDL 125. Continue pravastatin 40 mg daily. # Gout: Stable at this time. Continue allopurinol 300 mg once daily. Continue colchicine 0.6 mg once daily. # Seasonal allergies: Continue cetirizine 10 mg once daily. Continue Flonase 1 spray in each nostril daily. Advised may need to use more often now given asked exacerbation. Will continue to monitor. # Vitamin D deficiency: Vitamin D level decreased at 16 on 12/16/2023: Continue vitamin D 5000 units once weekly. # Prediabetes: Hemoglobin A1c obtained on 12/16/23 to 6.1%. Continue metformin 750 mg once daily with evening meal. Will continue to monitor. All questions have been answered to patient's satisfaction. Patient verbalized understanding of diagnosis and treatments explained. Advised to call sooner prior to next visit it any questions/concerns arise. Case discussed with collaborating physician Trevor Carrera who reviewed the assessment and plan. Chart, medications, labs, vital signs reviewed. Dictation was accomplished with the use of [employer] voice recognition software, which is prone to medical misidentifications and grammatical errors. This are unintentional and the practitioner does try to identify and correct these, but some could still be present. Please do not hesitate to contact practitioner for clarification. 09/09/2024 Diabetes mellitus screening (ICD-10 - Z13.1) 09/09/2024 Essential (primary) hypertension (ICD-10 - I10) Acute Concerns/Problem List: 09/09/2024 Lets update labs Talked about weight loss strategies including medication however has Medicare unfortunately Discussed perhaps switching to [facility] Thyroid function in May seems stable Clotrimazole for balanitis Discussed that he needs to call colorectal surgery back Of note, some information is being carried forward from prior records for informational purposes only and is being cited so that efficiency, safety and quality of the patient's care is not compromised This note was prepared using voice recognition software and direct typing Please excuse inadvertent general road foreman or typing errors, or uncorrected word substitutions Although every attempt has been made by the provider to proofread this document, occasional misspellings and typographical errors may still be present Due to the previous pandemic, and the use of personal protective equipment (PPE) This may decrease voice recognition accuracy Inadvertent general road foreman errors may occur 07/29/2024 Vitamin D deficiency (ICD-10 - E55.9) 03/30/2024 Essential hypertension (ICD-10 - I10) Eladio is a 43-year-old male history of asthma, hyperlipidemia, hypertension, prediabetes who presents the office today for urgent care visit for asthma exacerbation. Reports experiencing coughing and sneezing with associated wheezing and chest tightness over the past week. Believes that season change may be contributory to asthma flare. Has been using his albuterol inhaler regularly and has been using ipratropium albuterol nebulizer treatment every 6 hours without relief of wheezing. He reports no fevers, chills, shortness of breath, chest pain, abdominal pain, nausea, vomiting, or diarrhea. Recently found to have COVID 3 to 4 weeks ago at which time he was treated with Paxlovid. He is up-to-date on RSV, pneumonia, flu, and RSV vaccines. On physical exam patient is well-appearing in no acute distress. Vital signs are within normal limits with blood pressure 124/80, heart rate 67, and oxygen saturation 95% on room air. Normal respiratory effort appreciated. Cardiac exam unremarkable. Mild inspiratory wheezes appreciated in bilateral lung [place]. No evidence of stridor, rhonchi, or rales appreciated bilaterally. Given clinical presentation I suspect a mild asthma constipation. Discussed low-dose inhaled steroids however patient states that he has trouble using an inhaled device, has used low-dose prednisone before in the past for exacerbations which has been helpful. Will prescribe prednisone 20 mg to be taken twice daily for 7 days. Will also refer the patient to pulmonology for continued management of asthma including use of pulmonary function testing as needed. Advised return to the office sooner if symptoms do not improve. Advised to go to the emergency department if he develops fever, difficulty breathing, chest pain, tractable vomiting or diarrhea, dizziness, or weakness. Patient demonstrated understanding. All patient questions answered at this time. # Hypertension: Blood her stable in office today 124/80. Continue lisinopril 5 mg once daily. # Hyperlipidemia: Lipid panel obtained on 12/16/2023 with values including cholesterol 197, triglycerides 122, HDL 48, and LDL 125. Continue pravastatin sodium 40 mg once daily. Will continue to monitor. # Gout: Stable at this time. Continue allopurinol 300 mg once daily. Continue colchicine 0.6 mg once daily. # Seasonal allergies: Continue cetirizine 10 mg once daily. Continue Flonase 1 spray in each nostril daily. Advised may need to use more often now given asked exacerbation. Will continue to monitor. # Vitamin D deficiency: Vitamin D level decreased at 16 on 12/16/2023: Continue vitamin D 5000 units once weekly. # Prediabetes: Hemoglobin A1c obtained on 12/16/23 to 6.1%. Continue metformin 750 mg once daily with evening meal. Will continue to monitor. All questions have been answered to patient's satisfaction. Patient verbalized understanding of diagnosis and treatments explained. Advised to call sooner prior to next visit it any questions/concerns arise. Case discussed with collaborating physician Trevor Carrera who reviewed the assessment and plan. Chart, medications, labs, vital signs reviewed. Dictation was accomplished with the use of [employer] voice recognition software, which is prone to medical misidentifications and grammatical errors. This are unintentional and the practitioner does try to identify and correct these, but some could still be present. Please do not hesitate to contact practitioner for clarification. 03/30/2024 Hypothyroidism, unspecified (ICD-10 - E03.9) Eladio is a 43-year-old male history of asthma, hyperlipidemia, hypertension, prediabetes who presents the office today for urgent care visit for asthma exacerbation. Reports experiencing coughing and sneezing with associated wheezing and chest tightness over the past week. Believes that season change may be contributory to asthma flare. Has been using his albuterol inhaler regularly and has been using ipratropium albuterol nebulizer treatment every 6 hours without relief of wheezing. He reports no fevers, chills, shortness of breath, chest pain, abdominal pain, nausea, vomiting, or diarrhea. Recently found to have COVID 3 to 4 weeks ago at which time he was treated with Paxlovid. He is up-to-date on RSV, pneumonia, flu, and RSV vaccines. On physical exam patient is well-appearing in no acute distress. Vital signs are within normal limits with blood pressure 124/80, heart rate 67, and oxygen saturation 95% on room air. Normal respiratory effort appreciated. Cardiac exam unremarkable. Mild inspiratory wheezes appreciated in bilateral lung [place]. No evidence of stridor, rhonchi, or rales appreciated bilaterally. Given clinical presentation I suspect a mild asthma constipation. Discussed low-dose inhaled steroids however patient states that he has trouble using an inhaled device, has used low-dose prednisone before in the past for exacerbations which has been helpful. Will prescribe prednisone 20 mg to be taken twice daily for 7 days. Will also refer the patient to pulmonology for continued management of asthma including use of pulmonary function testing as needed. Advised return to the office sooner if symptoms do not improve. Advised to go to the emergency department if he develops fever, difficulty breathing, chest pain, tractable vomiting or diarrhea, dizziness, or weakness. Patient demonstrated understanding. All patient questions answered at this time. # Hypertension: Blood her stable in office today 124/80. Continue lisinopril 5 mg once daily. # Hyperlipidemia: Lipid panel obtained on 12/16/2023 with values including cholesterol 197, triglycerides 122, HDL 48, and LDL 125. Continue pravastatin sodium 40 mg once daily. Will continue to monitor. # Gout: Stable at this time. Continue allopurinol 300 mg once daily. Continue colchicine 0.6 mg once daily. # Seasonal allergies: Continue cetirizine 10 mg once daily. Continue Flonase 1 spray in each nostril daily. Advised may need to use more often now given asked exacerbation. Will continue to monitor. # Vitamin D deficiency: Vitamin D level decreased at 16 on 12/16/2023: Continue vitamin D 5000 units once weekly. # Prediabetes: Hemoglobin A1c obtained on 12/16/23 to 6.1%. Continue metformin 750 mg once daily with evening meal. Will continue to monitor. All questions have been answered to patient's satisfaction. Patient verbalized understanding of diagnosis and treatments explained. Advised to call sooner prior to next visit it any questions/concerns arise. Case discussed with collaborating physician Trevor Carrera who reviewed the assessment and plan. Chart, medications, labs, vital signs reviewed. Dictation was accomplished with the use of [employer] voice recognition software, which is prone to medical misidentifications and grammatical errors. This are unintentional and the practitioner does try to identify and correct these, but some could still be present. Please do not hesitate to contact practitioner for clarification. 07/29/2024 Essential (primary) hypertension (ICD-10 - I10) 09/09/2024 Mixed hyperlipidemia (ICD-10 - E78.2) Acute Concerns/Problem List: 09/09/2024 Lets update labs Talked about weight loss strategies including medication however has Medicare unfortunately Discussed perhaps switching to [facility] Thyroid function in May seems stable Clotrimazole for balanitis Discussed that he needs to call colorectal surgery back Of note, some information is being carried forward from prior records for informational purposes only and is being cited so that efficiency, safety and quality of the patient's care is not compromised This note was prepared using voice recognition software and direct typing Please excuse inadvertent general road foreman or typing errors, or uncorrected word substitutions Although every attempt has been made by the provider to proofread this document, occasional misspellings and typographical errors may still be present Due to the previous pandemic, and the use of personal protective equipment (PPE) This may decrease voice recognition accuracy Inadvertent general road foreman errors may occur 09/09/2024 Avitaminosis D (ICD-10 - E55.9) 07/28/2024 TSH elevation (ICD-10 - R79.89) Acute Concerns/Problem List: 07/28/2024 Of note, some information is being carried forward from prior records for informational purposes only and is being cited so that efficiency, safety and quality of the patient's care is not compromised This note was prepared using voice recognition software and direct typing Please excuse inadvertent general road foreman or typing errors, or uncorrected word substitutions Although every attempt has been made by the provider to proofread this document, occasional misspellings and typographical errors may still be present Due to the previous pandemic, and the use of personal protective equipment (PPE) This may decrease voice recognition accuracy Inadvertent general road foreman errors may occur 08/05/2024 Mixed hyperlipidemia (ICD-10 - E78.2) Eladio is a 43-year-old male with history of asthma, hypertension, seasonal allergies, and hypothyroidism who presents today for urgent care visit for upper respiratory symptoms that began yesterday. Symptoms include sneezing, runny nose, productive cough, congestion, chest tightness, and bodyaches. Reports no shortness of breath or dyspnea on exertion, no chest pain, no GI symptoms. Up-to-date on influenza vaccine, RSV, and COVID vaccines as well as pneumonia immunization. On physical exam patient is well-appearing and in no acute distress. Blood pressure is elevated 146/92, heart rate 87, O2 saturation 97%, found to have a fever of 101.2 degrees F. Cardiopulmonary exam unremarkable. No lymphadenopathy or lymphadenitis appreciated upon palpation bilaterally. Oropharynx nonerythematous and nonedematous without tonsillar hypertrophy, exudates, or uvular deviation. 2+ and equal radial pulses bilaterally. Viral swab obtained in office and is negative for COVID, flu, and RSV. Patient informed verbally of these results. Discussed that symptoms likely related to a viral infection. Discussed importance of conservative measures at this time including Tylenol or ibuprofen for fever reduction as well as for pain control. Discussed importance of hydration as well as nutrition as well as optimal rest. For cough we will refill prescription for Tessalon Perles 100 mg 1 capsule 3 times daily as needed for cough. Described proper use of the medication and potential side effect profile. Discussed red flag signs that may require ED evaluation including but not limited to intractable fever, chest pain, difficulty breathing, intractable vomiting or diarrhea, dizziness, or weakness. Patient understanding, all patient questions answered at this time. # Asthma: Patient reports no shortness of breath. Continue albuterol sulfate 1-2 puffs as needed every 6 hours for shortness of breath or wheezing. # Hypothyroidism: Continue levothyroxine 75 mcg once daily in the morning on empty stomach and before other medications. # Hypertension: Continue lisinopril 5 mg daily. # Hyperlipidemia: Lipid panel obtained on 12/16/2023 with values including cholesterol 197, triglycerides 122, HDL 48, and LDL 125. Continue pravastatin 40 mg daily. # Gout: Stable at this time. Continue allopurinol 300 mg once daily. Continue colchicine 0.6 mg once daily. # Seasonal allergies: Continue cetirizine 10 mg once daily. Continue Flonase 1 spray in each nostril daily. Advised may need to use more often now given asked exacerbation. Will continue to monitor. # Vitamin D deficiency: Vitamin D level decreased at 16 on 12/16/2023: Continue vitamin D 5000 units once weekly. # Prediabetes: Hemoglobin A1c obtained on 12/16/23 to 6.1%. Continue metformin 750 mg once daily with evening meal. Will continue to monitor. All questions have been answered to patient's satisfaction. Patient verbalized understanding of diagnosis and treatments explained. Advised to call sooner prior to next visit it any questions/concerns arise. Case discussed with collaborating physician Trevor Carrera who reviewed the assessment and plan. Chart, medications, labs, vital signs reviewed. Dictation was accomplished with the use of [employer] voice recognition software, which is prone to medical misidentifications and grammatical errors. This are unintentional and the practitioner does try to identify and correct these, but some could still be present. Please do not hesitate to contact practitioner for clarification. 12/27/2023 Mild intermittent asthma, uncomplicated (ICD-10 - J45.20) Acute Concerns/Problem List: 12/27/2023 Chronic conditions are stable Will refer for colorectal, Please contact colorectal surgery number was given today Metformin for prediabetic state and obesity Updated labs are reviewed 4 months follow-up Reviewed with patient the importance of medication and treatment plan compliance with BP goal of less then 140/90 per JNC 8 guidelines based on patient's age. This will ensure optimal health outcomes and prevent target organ damage. Made aware that uncontrolled hypertension may be silent and result in a stroke, heart attack, renal failure or even . Discussed the rationale for individualized medication regimen and the effects of their BP. Instructed to seek emergent care if the patient develops a headache, blurry vision, dizziness, chest pain or pressure. Total time spent today was 30 minutes of which greater than 50% was spent on coordinating and counseling Patient has been found to be obese with a BMI of (49). Patient has class (3) obesity. We are a board certified obesity and weight management practice Patient has trialed behavioral modification, dietary restrictions and exercise for a minimum of 6 months The most recent [place] [employer]in[employer] and [place] [employer] guidelines recommend patients who have overweight BMI or obesity BMI, who also have metabolic syndrome, prediabetes, HLD, and other comorbidities or at risk of developing type 2 diabetes should aim for a weight loss goal of at least 10% of the baseline body weight Patient counseled regarding effects of GLP/GIP-1 agonists, and other FDA approved wgt loss meds with regards to a multifactorial approach of weight loss as mentioned above and not solely appetite suppression. We have discussed the mechanism of GLP-1's/GIP, dual incretins, appetitite suppressants I think this would be fantastic option for her given her metabolic workup and body composition We have discussed the risks and benefits and side effects including/and not limited to Sarcopenia, intestinal obstruction, constipation, nausea, lethargy, headache Discussed importance of protein consumption for muscle maintenance as well as strength and resistance training ,probiotics, B12 complex biotin , iron and other nutrients, To help avoid telogen effluvium We have discussed the lifelong requirement of nutritional supplementation And adherence to an exercise regimen as well as importance of follow-up The patient understands and agrees There is no history of medullary thyroid cancer or multiple endocrine neoplasia There is also no history of cardiovascular disease, hypertension, palpitations, or arrhythmias In the setting of potential stimulant/amphetamin e use such as phentermine We have also discussed risks and benefits, and the use of compounded medications to help offset the national shortages as well as financial implications vs trade name drugs Of note, some information is being carried forward from prior records for informational purposes only and is being cited so that efficiency, safety and quality of the patient's care is not compromised This note was prepared using voice recognition software and direct typing Please excuse inadvertent general road foreman or typing errors, or uncorrected word substitutions Although every attempt has been made by the provider to proofread this document, occasional misspellings and typographical errors may still be present Due to the previous pandemic, and the use of personal protective equipment (PPE) This may decrease voice recognition accuracy Inadvertent general road foreman errors may occur 12/27/2023 BMI 45.0-49.9, adult (ICD-10 - Z68.42) Acute Concerns/Problem List: 12/27/2023 Chronic conditions are stable Will refer for colorectal, Please contact colorectal surgery number was given today Metformin for prediabetic state and obesity Updated labs are reviewed 4 months follow-up Reviewed with patient the importance of medication and treatment plan compliance with BP goal of less then 140/90 per JNC 8 guidelines based on patient's age. This will ensure optimal health outcomes and prevent target organ damage. Made aware that uncontrolled hypertension may be silent and result in a stroke, heart attack, renal failure or even . Discussed the rationale for individualized medication regimen and the effects of their BP. Instructed to seek emergent care if the patient develops a headache, blurry vision, dizziness, chest pain or pressure. Total time spent today was 30 minutes of which greater than 50% was spent on coordinating and counseling Patient has been found to be obese with a BMI of (49). Patient has class (3) obesity. We are a board certified obesity and weight management practice Patient has trialed behavioral modification, dietary restrictions and exercise for a minimum of 6 months The most recent [place] [employer]ocrin[employer] and [place] [employer] guidelines recommend patients who have overweight BMI or obesity BMI, who also have metabolic syndrome, prediabetes, HLD, and other comorbidities or at risk of developing type 2 diabetes should aim for a weight loss goal of at least 10% of the baseline body weight Patient counseled regarding effects of GLP/GIP-1 agonists, and other FDA approved wgt loss meds with regards to a multifactorial approach of weight loss as mentioned above and not solely appetite suppression. We have discussed the mechanism of GLP-1's/GIP, dual incretins, appetitite suppressants I think this would be fantastic option for her given her metabolic workup and body composition We have discussed the risks and benefits and side effects including/and not limited to Sarcopenia, intestinal obstruction, constipation, nausea, lethargy, headache Discussed importance of protein consumption for muscle maintenance as well as strength and resistance training ,probiotics, B12 complex biotin , iron and other nutrients, To help avoid telogen effluvium We have discussed the lifelong requirement of nutritional supplementation And adherence to an exercise regimen as well as importance of follow-up The patient understands and agrees There is no history of medullary thyroid cancer or multiple endocrine neoplasia There is also no history of cardiovascular disease, hypertension, palpitations, or arrhythmias In the setting of potential stimulant/amphetamin e use such as phentermine We have also discussed risks and benefits, and the use of compounded medications to help offset the national shortages as well as financial implications vs trade name drugs Of note, some information is being carried forward from prior records for informational purposes only and is being cited so that efficiency, safety and quality of the patient's care is not compromised This note was prepared using voice recognition software and direct typing Please excuse inadvertent general road foreman or typing errors, or uncorrected word substitutions Although every attempt has been made by the provider to proofread this document, occasional misspellings and typographical errors may still be present Due to the previous pandemic, and the use of personal protective equipment (PPE) This may decrease voice recognition accuracy Inadvertent general road foreman errors may occur 07/28/2024 GERD without esophagitis (ICD-10 - K21.9) Acute Concerns/Problem List: 07/28/2024 Of note, some information is being carried forward from prior records for informational purposes only and is being cited so that efficiency, safety and quality of the patient's care is not compromised This note was prepared using voice recognition software and direct typing Please excuse inadvertent general road foreman or typing errors, or uncorrected word substitutions Although every attempt has been made by the provider to proofread this document, occasional misspellings and typographical errors may still be present Due to the previous pandemic, and the use of personal protective equipment (PPE) This may decrease voice recognition accuracy Inadvertent general road foreman errors may occur 09/09/2024 Encounter for screening for endocrine disorder (ICD-10 - Z13.29) 08/05/2024 Controlled gout (ICD-10 - M10.9) Eladio is a 43-year-old male with history of asthma, hypertension, seasonal allergies, and hypothyroidism who presents today for urgent care visit for upper respiratory symptoms that began yesterday. Symptoms include sneezing, runny nose, productive cough, congestion, chest tightness, and bodyaches. Reports no shortness of breath or dyspnea on exertion, no chest pain, no GI symptoms. Up-to-date on influenza vaccine, RSV, and COVID vaccines as well as pneumonia immunization. On physical exam patient is well-appearing and in no acute distress. Blood pressure is elevated 146/92, heart rate 87, O2 saturation 97%, found to have a fever of 101.2 degrees F. Cardiopulmonary exam unremarkable. No lymphadenopathy or lymphadenitis appreciated upon palpation bilaterally. Oropharynx nonerythematous and nonedematous without tonsillar hypertrophy, exudates, or uvular deviation. 2+ and equal radial pulses bilaterally. Viral swab obtained in office and is negative for COVID, flu, and RSV. Patient informed verbally of these results. Discussed that symptoms likely related to a viral infection. Discussed importance of conservative measures at this time including Tylenol or ibuprofen for fever reduction as well as for pain control. Discussed importance of hydration as well as nutrition as well as optimal rest. For cough we will refill prescription for Tessalon Perles 100 mg 1 capsule 3 times daily as needed for cough. Described proper use of the medication and potential side effect profile. Discussed red flag signs that may require ED evaluation including but not limited to intractable fever, chest pain, difficulty breathing, intractable vomiting or diarrhea, dizziness, or weakness. Patient understanding, all patient questions answered at this time. # Asthma: Patient reports no shortness of breath. Continue albuterol sulfate 1-2 puffs as needed every 6 hours for shortness of breath or wheezing. # Hypothyroidism: Continue levothyroxine 75 mcg once daily in the morning on empty stomach and before other medications. # Hypertension: Continue lisinopril 5 mg daily. # Hyperlipidemia: Lipid panel obtained on 12/16/2023 with values including cholesterol 197, triglycerides 122, HDL 48, and LDL 125. Continue pravastatin 40 mg daily. # Gout: Stable at this time. Continue allopurinol 300 mg once daily. Continue colchicine 0.6 mg once daily. # Seasonal allergies: Continue cetirizine 10 mg once daily. Continue Flonase 1 spray in each nostril daily. Advised may need to use more often now given asked exacerbation. Will continue to monitor. # Vitamin D deficiency: Vitamin D level decreased at 16 on 12/16/2023: Continue vitamin D 5000 units once weekly. # Prediabetes: Hemoglobin A1c obtained on 12/16/23 to 6.1%. Continue metformin 750 mg once daily with evening meal. Will continue to monitor. All questions have been answered to patient's satisfaction. Patient verbalized understanding of diagnosis and treatments explained. Advised to call sooner prior to next visit it any questions/concerns arise. Case discussed with collaborating physician Trevor Carrera who reviewed the assessment and plan. Chart, medications, labs, vital signs reviewed. Dictation was accomplished with the use of [employer] voice recognition software, which is prone to medical misidentifications and grammatical errors. This are unintentional and the practitioner does try to identify and correct these, but some could still be present. Please do not hesitate to contact practitioner for clarification. 09/09/2024 Morbid (severe) obesity due to excess calories (ICD-10 - E66.01) Acute Concerns/Problem List: 09/09/2024 Lets update labs Talked about weight loss strategies including medication however has Medicare unfortunately Discussed perhaps switching to [facility] Thyroid function in May seems stable Clotrimazole for balanitis Discussed that he needs to call colorectal surgery back Of note, some information is being carried forward from prior records for informational purposes only and is being cited so that efficiency, safety and quality of the patient's care is not compromised This note was prepared using voice recognition software and direct typing Please excuse inadvertent general road foreman or typing errors, or uncorrected word substitutions Although every attempt has been made by the provider to proofread this document, occasional misspellings and typographical errors may still be present Due to the previous pandemic, and the use of personal protective equipment (PPE) This may decrease voice recognition accuracy Inadvertent general road foreman errors may occur 07/29/2024 Adult general medical exam (ICD-10 - Z00.00) 03/30/2024 Idiopathic gout, unspecified site (ICD-10 - M10.00) Eladio is a 43-year-old male history of asthma, hyperlipidemia, hypertension, prediabetes who presents the office today for urgent care visit for asthma exacerbation. Reports experiencing coughing and sneezing with associated wheezing and chest tightness over the past week. Believes that season change may be contributory to asthma flare. Has been using his albuterol inhaler regularly and has been using ipratropium albuterol nebulizer treatment every 6 hours without relief of wheezing. He reports no fevers, chills, shortness of breath, chest pain, abdominal pain, nausea, vomiting, or diarrhea. Recently found to have COVID 3 to 4 weeks ago at which time he was treated with Paxlovid. He is up-to-date on RSV, pneumonia, flu, and RSV vaccines. On physical exam patient is well-appearing in no acute distress. Vital signs are within normal limits with blood pressure 124/80, heart rate 67, and oxygen saturation 95% on room air. Normal respiratory effort appreciated. Cardiac exam unremarkable. Mild inspiratory wheezes appreciated in bilateral lung [place]. No evidence of stridor, rhonchi, or rales appreciated bilaterally. Given clinical presentation I suspect a mild asthma constipation. Discussed low-dose inhaled steroids however patient states that he has trouble using an inhaled device, has used low-dose prednisone before in the past for exacerbations which has been helpful. Will prescribe prednisone 20 mg to be taken twice daily for 7 days. Will also refer the patient to pulmonology for continued management of asthma including use of pulmonary function testing as needed. Advised return to the office sooner if symptoms do not improve. Advised to go to the emergency department if he develops fever, difficulty breathing, chest pain, tractable vomiting or diarrhea, dizziness, or weakness. Patient demonstrated understanding. All patient questions answered at this time. # Hypertension: Blood her stable in office today 124/80. Continue lisinopril 5 mg once daily. # Hyperlipidemia: Lipid panel obtained on 12/16/2023 with values including cholesterol 197, triglycerides 122, HDL 48, and LDL 125. Continue pravastatin sodium 40 mg once daily. Will continue to monitor. # Gout: Stable at this time. Continue allopurinol 300 mg once daily. Continue colchicine 0.6 mg once daily. # Seasonal allergies: Continue cetirizine 10 mg once daily. Continue Flonase 1 spray in each nostril daily. Advised may need to use more often now given asked exacerbation. Will continue to monitor. # Vitamin D deficiency: Vitamin D level decreased at 16 on 12/16/2023: Continue vitamin D 5000 units once weekly. # Prediabetes: Hemoglobin A1c obtained on 12/16/23 to 6.1%. Continue metformin 750 mg once daily with evening meal. Will continue to monitor. All questions have been answered to patient's satisfaction. Patient verbalized understanding of diagnosis and treatments explained. Advised to call sooner prior to next visit it any questions/concerns arise. Case discussed with collaborating physician Trevor Carrera who reviewed the assessment and plan. Chart, medications, labs, vital signs reviewed. Dictation was accomplished with the use of [employer] voice recognition software, which is prone to medical misidentifications and grammatical errors. This are unintentional and the practitioner does try to identify and correct these, but some could still be present. Please do not hesitate to contact practitioner for clarification. 03/30/2024 Vitamin D deficiency (ICD-10 - E55.9) Eladio is a 43-year-old male history of asthma, hyperlipidemia, hypertension, prediabetes who presents the office today for urgent care visit for asthma exacerbation. Reports experiencing coughing and sneezing with associated wheezing and chest tightness over the past week. Believes that season change may be contributory to asthma flare. Has been using his albuterol inhaler regularly and has been using ipratropium albuterol nebulizer treatment every 6 hours without relief of wheezing. He reports no fevers, chills, shortness of breath, chest pain, abdominal pain, nausea, vomiting, or diarrhea. Recently found to have COVID 3 to 4 weeks ago at which time he was treated with Paxlovid. He is up-to-date on RSV, pneumonia, flu, and RSV vaccines. On physical exam patient is well-appearing in no acute distress. Vital signs are within normal limits with blood pressure 124/80, heart rate 67, and oxygen saturation 95% on room air. Normal respiratory effort appreciated. Cardiac exam unremarkable. Mild inspiratory wheezes appreciated in bilateral lung [place]. No evidence of stridor, rhonchi, or rales appreciated bilaterally. Given clinical presentation I suspect a mild asthma constipation. Discussed low-dose inhaled steroids however patient states that he has trouble using an inhaled device, has used low-dose prednisone before in the past for exacerbations which has been helpful. Will prescribe prednisone 20 mg to be taken twice daily for 7 days. Will also refer the patient to pulmonology for continued management of asthma including use of pulmonary function testing as needed. Advised return to the office sooner if symptoms do not improve. Advised to go to the emergency department if he develops fever, difficulty breathing, chest pain, tractable vomiting or diarrhea, dizziness, or weakness. Patient demonstrated understanding. All patient questions answered at this time. # Hypertension: Blood her stable in office today 124/80. Continue lisinopril 5 mg once daily. # Hyperlipidemia: Lipid panel obtained on 12/16/2023 with values including cholesterol 197, triglycerides 122, HDL 48, and LDL 125. Continue pravastatin sodium 40 mg once daily. Will continue to monitor. # Gout: Stable at this time. Continue allopurinol 300 mg once daily. Continue colchicine 0.6 mg once daily. # Seasonal allergies: Continue cetirizine 10 mg once daily. Continue Flonase 1 spray in each nostril daily. Advised may need to use more often now given asked exacerbation. Will continue to monitor. # Vitamin D deficiency: Vitamin D level decreased at 16 on 12/16/2023: Continue vitamin D 5000 units once weekly. # Prediabetes: Hemoglobin A1c obtained on 12/16/23 to 6.1%. Continue metformin 750 mg once daily with evening meal. Will continue to monitor. All questions have been answered to patient's satisfaction. Patient verbalized understanding of diagnosis and treatments explained. Advised to call sooner prior to next visit it any questions/concerns arise. Case discussed with collaborating physician Trevor Carrera who reviewed the assessment and plan. Chart, medications, labs, vital signs reviewed. Dictation was accomplished with the use of [employer] voice recognition software, which is prone to medical misidentifications and grammatical errors. This are unintentional and the practitioner does try to identify and correct these, but some could still be present. Please do not hesitate to contact practitioner for clarification. 08/05/2024 Vitamin D deficiency (ICD-10 - E55.9) Eladio is a 43-year-old male with history of asthma, hypertension, seasonal allergies, and hypothyroidism who presents today for urgent care visit for upper respiratory symptoms that began yesterday. Symptoms include sneezing, runny nose, productive cough, congestion, chest tightness, and bodyaches. Reports no shortness of breath or dyspnea on exertion, no chest pain, no GI symptoms. Up-to-date on influenza vaccine, RSV, and COVID vaccines as well as pneumonia immunization. On physical exam patient is well-appearing and in no acute distress. Blood pressure is elevated 146/92, heart rate 87, O2 saturation 97%, found to have a fever of 101.2 degrees F. Cardiopulmonary exam unremarkable. No lymphadenopathy or lymphadenitis appreciated upon palpation bilaterally. Oropharynx nonerythematous and nonedematous without tonsillar hypertrophy, exudates, or uvular deviation. 2+ and equal radial pulses bilaterally. Viral swab obtained in office and is negative for COVID, flu, and RSV. Patient informed verbally of these results. Discussed that symptoms likely related to a viral infection. Discussed importance of conservative measures at this time including Tylenol or ibuprofen for fever reduction as well as for pain control. Discussed importance of hydration as well as nutrition as well as optimal rest. For cough we will refill prescription for Tessalon Perles 100 mg 1 capsule 3 times daily as needed for cough. Described proper use of the medication and potential side effect profile. Discussed red flag signs that may require ED evaluation including but not limited to intractable fever, chest pain, difficulty breathing, intractable vomiting or diarrhea, dizziness, or weakness. Patient understanding, all patient questions answered at this time. # Asthma: Patient reports no shortness of breath. Continue albuterol sulfate 1-2 puffs as needed every 6 hours for shortness of breath or wheezing. # Hypothyroidism: Continue levothyroxine 75 mcg once daily in the morning on empty stomach and before other medications. # Hypertension: Continue lisinopril 5 mg daily. # Hyperlipidemia: Lipid panel obtained on 12/16/2023 with values including cholesterol 197, triglycerides 122, HDL 48, and LDL 125. Continue pravastatin 40 mg daily. # Gout: Stable at this time. Continue allopurinol 300 mg once daily. Continue colchicine 0.6 mg once daily. # Seasonal allergies: Continue cetirizine 10 mg once daily. Continue Flonase 1 spray in each nostril daily. Advised may need to use more often now given asked exacerbation. Will continue to monitor. # Vitamin D deficiency: Vitamin D level decreased at 16 on 12/16/2023: Continue vitamin D 5000 units once weekly. # Prediabetes: Hemoglobin A1c obtained on 12/16/23 to 6.1%. Continue metformin 750 mg once daily with evening meal. Will continue to monitor. All questions have been answered to patient's satisfaction. Patient verbalized understanding of diagnosis and treatments explained. Advised to call sooner prior to next visit it any questions/concerns arise. Case discussed with collaborating physician Trevor Carrera who reviewed the assessment and plan. Chart, medications, labs, vital signs reviewed. Dictation was accomplished with the use of [employer] voice recognition software, which is prone to medical misidentifications and grammatical errors. This are unintentional and the practitioner does try to identify and correct these, but some could still be present. Please do not hesitate to contact practitioner for clarification. 09/09/2024 Mild intermittent asthma, uncomplicated (ICD-10 - J45.20) Acute Concerns/Problem List: 09/09/2024 Lets update labs Talked about weight loss strategies including medication however has Medicare unfortunately Discussed perhaps switching to [facility] Thyroid function in May seems stable Clotrimazole for jp Discussed that he needs to call colorectal surgery back Of note, some information is being carried forward from prior records for informational purposes only and is being cited so that efficiency, safety and quality of the patient's care is not compromised This note was prepared using voice recognition software and direct typing Please excuse inadvertent general road foreman or typing errors, or uncorrected word substitutions Although every attempt has been made by the provider to proofread this document, occasional misspellings and typographical errors may still be present Due to the previous pandemic, and the use of personal protective equipment (PPE) This may decrease voice recognition accuracy Inadvertent general road foreman errors may occur 07/28/2024 Anal pain (ICD-10 - K62.89) Acute Concerns/Problem List: 07/28/2024 Of note, some information is being carried forward from prior records for informational purposes only and is being cited so that efficiency, safety and quality of the patient's care is not compromised This note was prepared using voice recognition software and direct typing Please excuse inadvertent general road foreman or typing errors, or uncorrected word substitutions Although every attempt has been made by the provider to proofread this document, occasional misspellings and typographical errors may still be present Due to the previous pandemic, and the use of personal protective equipment (PPE) This may decrease voice recognition accuracy Inadvertent general road foreman errors may occur 12/27/2023 Anal pain (ICD-10 - K62.89) Acute Concerns/Problem List: 12/27/2023 Chronic conditions are stable Will refer for colorectal, Please contact colorectal surgery number was given today Metformin for prediabetic state and obesity Updated labs are reviewed 4 months follow-up Reviewed with patient the importance of medication and treatment plan compliance with BP goal of less then 140/90 per JNC 8 guidelines based on patient's age. This will ensure optimal health outcomes and prevent target organ damage. Made aware that uncontrolled hypertension may be silent and result in a stroke, heart attack, renal failure or even . Discussed the rationale for individualized medication regimen and the effects of their BP. Instructed to seek emergent care if the patient develops a headache, blurry vision, dizziness, chest pain or pressure. Total time spent today was 30 minutes of which greater than 50% was spent on coordinating and counseling Patient has been found to be obese with a BMI of (49). Patient has class (3) obesity. We are a board certified obesity and weight management practice Patient has trialed behavioral modification, dietary restrictions and exercise for a minimum of 6 months The most recent [place] [employer]in[employer] and [place] [employer] guidelines recommend patients who have overweight BMI or obesity BMI, who also have metabolic syndrome, prediabetes, HLD, and other comorbidities or at risk of developing type 2 diabetes should aim for a weight loss goal of at least 10% of the baseline body weight Patient counseled regarding effects of GLP/GIP-1 agonists, and other FDA approved wgt loss meds with regards to a multifactorial approach of weight loss as mentioned above and not solely appetite suppression. We have discussed the mechanism of GLP-1's/GIP, dual incretins, appetitite suppressants I think this would be fantastic option for her given her metabolic workup and body composition We have discussed the risks and benefits and side effects including/and not limited to Sarcopenia, intestinal obstruction, constipation, nausea, lethargy, headache Discussed importance of protein consumption for muscle maintenance as well as strength and resistance training ,probiotics, B12 complex biotin , iron and other nutrients, To help avoid telogen effluvium We have discussed the lifelong requirement of nutritional supplementation And adherence to an exercise regimen as well as importance of follow-up The patient understands and agrees There is no history of medullary thyroid cancer or multiple endocrine neoplasia There is also no history of cardiovascular disease, hypertension, palpitations, or arrhythmias In the setting of potential stimulant/amphetamin e use such as phentermine We have also discussed risks and benefits, and the use of compounded medications to help offset the national shortages as well as financial implications vs trade name drugs Of note, some information is being carried forward from prior records for informational purposes only and is being cited so that efficiency, safety and quality of the patient's care is not compromised This note was prepared using voice recognition software and direct typing Please excuse inadvertent general road foreman or typing errors, or uncorrected word substitutions Although every attempt has been made by the provider to proofread this document, occasional misspellings and typographical errors may still be present Due to the previous pandemic, and the use of personal protective equipment (PPE) This may decrease voice recognition accuracy Inadvertent general road foreman errors may occur 12/27/2023 Other constipation (ICD-10 - K59.09) Acute Concerns/Problem List: 12/27/2023 Chronic conditions are stable Will refer for colorectal, Please contact colorectal surgery number was given today Metformin for prediabetic state and obesity Updated labs are reviewed 4 months follow-up Reviewed with patient the importance of medication and treatment plan compliance with BP goal of less then 140/90 per JNC 8 guidelines based on patient's age. This will ensure optimal health outcomes and prevent target organ damage. Made aware that uncontrolled hypertension may be silent and result in a stroke, heart attack, renal failure or even . Discussed the rationale for individualized medication regimen and the effects of their BP. Instructed to seek emergent care if the patient develops a headache, blurry vision, dizziness, chest pain or pressure. Total time spent today was 30 minutes of which greater than 50% was spent on coordinating and counseling Patient has been found to be obese with a BMI of (49). Patient has class (3) obesity. We are a board certified obesity and weight management practice Patient has trialed behavioral modification, dietary restrictions and exercise for a minimum of 6 months The most recent [place] [employer]in[employer] and [place] [employer] guidelines recommend patients who have overweight BMI or obesity BMI, who also have metabolic syndrome, prediabetes, HLD, and other comorbidities or at risk of developing type 2 diabetes should aim for a weight loss goal of at least 10% of the baseline body weight Patient counseled regarding effects of GLP/GIP-1 agonists, and other FDA approved wgt loss meds with regards to a multifactorial approach of weight loss as mentioned above and not solely appetite suppression. We have discussed the mechanism of GLP-1's/GIP, dual incretins, appetitite suppressants I think this would be fantastic option for her given her metabolic workup and body composition We have discussed the risks and benefits and side effects including/and not limited to Sarcopenia, intestinal obstruction, constipation, nausea, lethargy, headache Discussed importance of protein consumption for muscle maintenance as well as strength and resistance training ,probiotics, B12 complex biotin , iron and other nutrients, To help avoid telogen effluvium We have discussed the lifelong requirement of nutritional supplementation And adherence to an exercise regimen as well as importance of follow-up The patient understands and agrees There is no history of medullary thyroid cancer or multiple endocrine neoplasia There is also no history of cardiovascular disease, hypertension, palpitations, or arrhythmias In the setting of potential stimulant/amphetamin e use such as phentermine We have also discussed risks and benefits, and the use of compounded medications to help offset the national shortages as well as financial implications vs trade name drugs Of note, some information is being carried forward from prior records for informational purposes only and is being cited so that efficiency, safety and quality of the patient's care is not compromised This note was prepared using voice recognition software and direct typing Please excuse inadvertent general road foreman or typing errors, or uncorrected word substitutions Although every attempt has been made by the provider to proofread this document, occasional misspellings and typographical errors may still be present Due to the previous pandemic, and the use of personal protective equipment (PPE) This may decrease voice recognition accuracy Inadvertent general road foreman errors may occur 08/05/2024 Prediabetes (ICD-10 - R73.03) Eladio is a 43-year-old male with history of asthma, hypertension, seasonal allergies, and hypothyroidism who presents today for urgent care visit for upper respiratory symptoms that began yesterday. Symptoms include sneezing, runny nose, productive cough, congestion, chest tightness, and bodyaches. Reports no shortness of breath or dyspnea on exertion, no chest pain, no GI symptoms. Up-to-date on influenza vaccine, RSV, and COVID vaccines as well as pneumonia immunization. On physical exam patient is well-appearing and in no acute distress. Blood pressure is elevated 146/92, heart rate 87, O2 saturation 97%, found to have a fever of 101.2 degrees F. Cardiopulmonary exam unremarkable. No lymphadenopathy or lymphadenitis appreciated upon palpation bilaterally. Oropharynx nonerythematous and nonedematous without tonsillar hypertrophy, exudates, or uvular deviation. 2+ and equal radial pulses bilaterally. Viral swab obtained in office and is negative for COVID, flu, and RSV. Patient informed verbally of these results. Discussed that symptoms likely related to a viral infection. Discussed importance of conservative measures at this time including Tylenol or ibuprofen for fever reduction as well as for pain control. Discussed importance of hydration as well as nutrition as well as optimal rest. For cough we will refill prescription for Tessalon Perles 100 mg 1 capsule 3 times daily as needed for cough. Described proper use of the medication and potential side effect profile. Discussed red flag signs that may require ED evaluation including but not limited to intractable fever, chest pain, difficulty breathing, intractable vomiting or diarrhea, dizziness, or weakness. Patient understanding, all patient questions answered at this time. # Asthma: Patient reports no shortness of breath. Continue albuterol sulfate 1-2 puffs as needed every 6 hours for shortness of breath or wheezing. # Hypothyroidism: Continue levothyroxine 75 mcg once daily in the morning on empty stomach and before other medications. # Hypertension: Continue lisinopril 5 mg daily. # Hyperlipidemia: Lipid panel obtained on 12/16/2023 with values including cholesterol 197, triglycerides 122, HDL 48, and LDL 125. Continue pravastatin 40 mg daily. # Gout: Stable at this time. Continue allopurinol 300 mg once daily. Continue colchicine 0.6 mg once daily. # Seasonal allergies: Continue cetirizine 10 mg once daily. Continue Flonase 1 spray in each nostril daily. Advised may need to use more often now given asked exacerbation. Will continue to monitor. # Vitamin D deficiency: Vitamin D level decreased at 16 on 12/16/2023: Continue vitamin D 5000 units once weekly. # Prediabetes: Hemoglobin A1c obtained on 12/16/23 to 6.1%. Continue metformin 750 mg once daily with evening meal. Will continue to monitor. All questions have been answered to patient's satisfaction. Patient verbalized understanding of diagnosis and treatments explained. Advised to call sooner prior to next visit it any questions/concerns arise. Case discussed with collaborating physician Trevor Carrera who reviewed the assessment and plan. Chart, medications, labs, vital signs reviewed. Dictation was accomplished with the use of [employer] voice recognition software, which is prone to medical misidentifications and grammatical errors. This are unintentional and the practitioner does try to identify and correct these, but some could still be present. Please do not hesitate to contact practitioner for clarification. 09/09/2024 TSH elevation (ICD-10 - R79.89) Acute Concerns/Problem List: 09/09/2024 Lets update labs Talked about weight loss strategies including medication however has Medicare unfortunately Discussed perhaps switching to [facility] Thyroid function in May seems stable Clotrimazole for balanitis Discussed that he needs to call colorectal surgery back Of note, some information is being carried forward from prior records for informational purposes only and is being cited so that efficiency, safety and quality of the patient's care is not compromised This note was prepared using voice recognition software and direct typing Please excuse inadvertent general road foreman or typing errors, or uncorrected word substitutions Although every attempt has been made by the provider to proofread this document, occasional misspellings and typographical errors may still be present Due to the previous pandemic, and the use of personal protective equipment (PPE) This may decrease voice recognition accuracy Inadvertent general road foreman errors may occur 03/30/2024 GERD without esophagitis (ICD-10 - K21.9) Eladio is a 43-year-old male history of asthma, hyperlipidemia, hypertension, prediabetes who presents the office today for urgent care visit for asthma exacerbation. Reports experiencing coughing and sneezing with associated wheezing and chest tightness over the past week. Believes that season change may be contributory to asthma flare. Has been using his albuterol inhaler regularly and has been using ipratropium albuterol nebulizer treatment every 6 hours without relief of wheezing. He reports no fevers, chills, shortness of breath, chest pain, abdominal pain, nausea, vomiting, or diarrhea. Recently found to have COVID 3 to 4 weeks ago at which time he was treated with Paxlovid. He is up-to-date on RSV, pneumonia, flu, and RSV vaccines. On physical exam patient is well-appearing in no acute distress. Vital signs are within normal limits with blood pressure 124/80, heart rate 67, and oxygen saturation 95% on room air. Normal respiratory effort appreciated. Cardiac exam unremarkable. Mild inspiratory wheezes appreciated in bilateral lung [place] ri[place]. No evidence of stridor, rhonchi, or rales appreciated bilaterally. Given clinical presentation I suspect a mild asthma constipation. Discussed low-dose inhaled steroids however patient states that he has trouble using an inhaled device, has used low-dose prednisone before in the past for exacerbations which has been helpful. Will prescribe prednisone 20 mg to be taken twice daily for 7 days. Will also refer the patient to pulmonology for continued management of asthma including use of pulmonary function testing as needed. Advised return to the office sooner if symptoms do not improve. Advised to go to the emergency department if he develops fever, difficulty breathing, chest pain, tractable vomiting or diarrhea, dizziness, or weakness. Patient demonstrated understanding. All patient questions answered at this time. # Hypertension: Blood her stable in office today 124/80. Continue lisinopril 5 mg once daily. # Hyperlipidemia: Lipid panel obtained on 12/16/2023 with values including cholesterol 197, triglycerides 122, HDL 48, and LDL 125. Continue pravastatin sodium 40 mg once daily. Will continue to monitor. # Gout: Stable at this time. Continue allopurinol 300 mg once daily. Continue colchicine 0.6 mg once daily. # Seasonal allergies: Continue cetirizine 10 mg once daily. Continue Flonase 1 spray in each nostril daily. Advised may need to use more often now given asked exacerbation. Will continue to monitor. # Vitamin D deficiency: Vitamin D level decreased at 16 on 12/16/2023: Continue vitamin D 5000 units once weekly. # Prediabetes: Hemoglobin A1c obtained on 12/16/23 to 6.1%. Continue metformin 750 mg once daily with evening meal. Will continue to monitor. All questions have been answered to patient's satisfaction. Patient verbalized understanding of diagnosis and treatments explained. Advised to call sooner prior to next visit it any questions/concerns arise. Case discussed with collaborating physician Trevor Carrera who reviewed the assessment and plan. Chart, medications, labs, vital signs reviewed. Dictation was accomplished with the use of [employer] voice recognition software, which is prone to medical misidentifications and grammatical errors. This are unintentional and the practitioner does try to identify and correct these, but some could still be present. Please do not hesitate to contact practitioner for clarification. 03/30/2024 Prediabetes (ICD-10 - R73.03) Eladio is a 43-year-old male history of asthma, hyperlipidemia, hypertension, prediabetes who presents the office today for urgent care visit for asthma exacerbation. Reports experiencing coughing and sneezing with associated wheezing and chest tightness over the past week. Believes that season change may be contributory to asthma flare. Has been using his albuterol inhaler regularly and has been using ipratropium albuterol nebulizer treatment every 6 hours without relief of wheezing. He reports no fevers, chills, shortness of breath, chest pain, abdominal pain, nausea, vomiting, or diarrhea. Recently found to have COVID 3 to 4 weeks ago at which time he was treated with Paxlovid. He is up-to-date on RSV, pneumonia, flu, and RSV vaccines. On physical exam patient is well-appearing in no acute distress. Vital signs are within normal limits with blood pressure 124/80, heart rate 67, and oxygen saturation 95% on room air. Normal respiratory effort appreciated. Cardiac exam unremarkable. Mild inspiratory wheezes appreciated in bilateral lung [place]. No evidence of stridor, rhonchi, or rales appreciated bilaterally. Given clinical presentation I suspect a mild asthma constipation. Discussed low-dose inhaled steroids however patient states that he has trouble using an inhaled device, has used low-dose prednisone before in the past for exacerbations which has been helpful. Will prescribe prednisone 20 mg to be taken twice daily for 7 days. Will also refer the patient to pulmonology for continued management of asthma including use of pulmonary function testing as needed. Advised return to the office sooner if symptoms do not improve. Advised to go to the emergency department if he develops fever, difficulty breathing, chest pain, tractable vomiting or diarrhea, dizziness, or weakness. Patient demonstrated understanding. All patient questions answered at this time. # Hypertension: Blood her stable in office today 124/80. Continue lisinopril 5 mg once daily. # Hyperlipidemia: Lipid panel obtained on 12/16/2023 with values including cholesterol 197, triglycerides 122, HDL 48, and LDL 125. Continue pravastatin sodium 40 mg once daily. Will continue to monitor. # Gout: Stable at this time. Continue allopurinol 300 mg once daily. Continue colchicine 0.6 mg once daily. # Seasonal allergies: Continue cetirizine 10 mg once daily. Continue Flonase 1 spray in each nostril daily. Advised may need to use more often now given asked exacerbation. Will continue to monitor. # Vitamin D deficiency: Vitamin D level decreased at 16 on 12/16/2023: Continue vitamin D 5000 units once weekly. # Prediabetes: Hemoglobin A1c obtained on 12/16/23 to 6.1%. Continue metformin 750 mg once daily with evening meal. Will continue to monitor. All questions have been answered to patient's satisfaction. Patient verbalized understanding of diagnosis and treatments explained. Advised to call sooner prior to next visit it any questions/concerns arise. Case discussed with collaborating physician Trevor Carrera who reviewed the assessment and plan. Chart, medications, labs, vital signs reviewed. Dictation was accomplished with the use of [employer] voice recognition software, which is prone to medical misidentifications and grammatical errors. This are unintentional and the practitioner does try to identify and correct these, but some could still be present. Please do not hesitate to contact practitioner for clarification. 09/09/2024 GERD without esophagitis (ICD-10 - K21.9) Acute Concerns/Problem List: 09/09/2024 Lets update labs Talked about weight loss strategies including medication however has Medicare unfortunately Discussed perhaps switching to [facility] Thyroid function in May seems stable Clotrimazole for balanitis Discussed that he needs to call colorectal surgery back Of note, some information is being carried forward from prior records for informational purposes only and is being cited so that efficiency, safety and quality of the patient's care is not compromised This note was prepared using voice recognition software and direct typing Please excuse inadvertent general road foreman or typing errors, or uncorrected word substitutions Although every attempt has been made by the provider to proofread this document, occasional misspellings and typographical errors may still be present Due to the previous pandemic, and the use of personal protective equipment (PPE) This may decrease voice recognition accuracy Inadvertent general road foreman errors may occur 08/05/2024 Seasonal allergies (ICD-10 - J30.2) Eladio is a 43-year-old male with history of asthma, hypertension, seasonal allergies, and hypothyroidism who presents today for urgent care visit for upper respiratory symptoms that began yesterday. Symptoms include sneezing, runny nose, productive cough, congestion, chest tightness, and bodyaches. Reports no shortness of breath or dyspnea on exertion, no chest pain, no GI symptoms. Up-to-date on influenza vaccine, RSV, and COVID vaccines as well as pneumonia immunization. On physical exam patient is well-appearing and in no acute distress. Blood pressure is elevated 146/92, heart rate 87, O2 saturation 97%, found to have a fever of 101.2 degrees F. Cardiopulmonary exam unremarkable. No lymphadenopathy or lymphadenitis appreciated upon palpation bilaterally. Oropharynx nonerythematous and nonedematous without tonsillar hypertrophy, exudates, or uvular deviation. 2+ and equal radial pulses bilaterally. Viral swab obtained in office and is negative for COVID, flu, and RSV. Patient informed verbally of these results. Discussed that symptoms likely related to a viral infection. Discussed importance of conservative measures at this time including Tylenol or ibuprofen for fever reduction as well as for pain control. Discussed importance of hydration as well as nutrition as well as optimal rest. For cough we will refill prescription for Tessalon Perles 100 mg 1 capsule 3 times daily as needed for cough. Described proper use of the medication and potential side effect profile. Discussed red flag signs that may require ED evaluation including but not limited to intractable fever, chest pain, difficulty breathing, intractable vomiting or diarrhea, dizziness, or weakness. Patient understanding, all patient questions answered at this time. # Asthma: Patient reports no shortness of breath. Continue albuterol sulfate 1-2 puffs as needed every 6 hours for shortness of breath or wheezing. # Hypothyroidism: Continue levothyroxine 75 mcg once daily in the morning on empty stomach and before other medications. # Hypertension: Continue lisinopril 5 mg daily. # Hyperlipidemia: Lipid panel obtained on 12/16/2023 with values including cholesterol 197, triglycerides 122, HDL 48, and LDL 125. Continue pravastatin 40 mg daily. # Gout: Stable at this time. Continue allopurinol 300 mg once daily. Continue colchicine 0.6 mg once daily. # Seasonal allergies: Continue cetirizine 10 mg once daily. Continue Flonase 1 spray in each nostril daily. Advised may need to use more often now given asked exacerbation. Will continue to monitor. # Vitamin D deficiency: Vitamin D level decreased at 16 on 12/16/2023: Continue vitamin D 5000 units once weekly. # Prediabetes: Hemoglobin A1c obtained on 12/16/23 to 6.1%. Continue metformin 750 mg once daily with evening meal. Will continue to monitor. All questions have been answered to patient's satisfaction. Patient verbalized understanding of diagnosis and treatments explained. Advised to call sooner prior to next visit it any questions/concerns arise. Case discussed with collaborating physician Trevor Carrera who reviewed the assessment and plan. Chart, medications, labs, vital signs reviewed. Dictation was accomplished with the use of [employer] voice recognition software, which is prone to medical misidentifications and grammatical errors. This are unintentional and the practitioner does try to identify and correct these, but some could still be present. Please do not hesitate to contact practitioner for clarification. 09/09/2024 Anal pain (ICD-10 - K62.89) Acute Concerns/Problem List: 09/09/2024 Lets update labs Talked about weight loss strategies including medication however has Medicare unfortunately Discussed perhaps switching to [facility] Thyroid function in May seems stable Clotrimazole for balanitis Discussed that he needs to call colorectal surgery back Of note, some information is being carried forward from prior records for informational purposes only and is being cited so that efficiency, safety and quality of the patient's care is not compromised This note was prepared using voice recognition software and direct typing Please excuse inadvertent general road foreman or typing errors, or uncorrected word substitutions Although every attempt has been made by the provider to proofread this document, occasional misspellings and typographical errors may still be present Due to the previous pandemic, and the use of personal protective equipment (PPE) This may decrease voice recognition accuracy Inadvertent general road foreman errors may occur Plan Of Treatment Pending Test Test Name Order Date TSH+Free T4 02/02/2019 Lipid Panel 02/02/2019 Lipid Panel 09/05/2018 Comp. Metabolic Panel (14) 02/02/2019 Comp. Metabolic Panel (14) 09/05/2018 CBC 09/05/2018 CBC 02/02/2019 Urinalysis 09/05/2018 EKG 12/17/2017 25OH VITAMIN D 06/25/2023 25OH VITAMIN D 09/07/2021 25OH VITAMIN D 07/29/2024 CBC (COMPLETE BLOOD COUNT) 10/16/2017 CBC (COMPLETE BLOOD COUNT) 07/26/2020 CBC (COMPLETE BLOOD COUNT) 09/20/2020 CBC (COMPLETE BLOOD COUNT) 12/17/2017 CBC (COMPLETE BLOOD COUNT) WITH DIFF 10/2023 CBC (COMPLETE BLOOD COUNT) WITH DIFF COMPREHENSIVE METABOLIC PANEL 09/07/2021 COMPREHENSIVE METABOLIC PANEL 09/20/2020 COMPREHENSIVE METABOLIC PANEL 04/11/2021 COMPREHENSIVE METABOLIC PANEL 10/16/2017 COMPREHENSIVE METABOLIC PANEL 07/26/2020 COMPREHENSIVE METABOLIC PANEL 06/25/2023 COMPREHENSIVE METABOLIC PANEL 12/17/2017 COMPREHENSIVE METABOLIC PANEL 07/29/2024 CRP, HIGH SENSITIVITY 12/17/2017 HEMOGLOBIN A1C 06/25/2023 HEMOGLOBIN A1C 02/07/2022 HEMOGLOBIN A1C 07/26/2020 HEMOGLOBIN A1C 10/16/2017 HEMOGLOBIN A1C 04/11/2021 HEMOGLOBIN A1C 09/07/2021 LIPID PANEL 09/07/2021 LIPID PANEL 07/26/2020 LIPID PANEL 10/16/2017 LIPID PANEL 06/25/2023 LIPID PANEL 12/17/2017 LIPID PANEL 07/29/2024 T4, TOTAL 07/29/2024 T4, TOTAL 05/06/2024 T4, TOTAL 04/12/2021 T4, TOTAL 02/07/2022 TSH 02/07/2022 TSH 04/11/2021 TSH 04/12/2021 TSH 06/25/2023 TSH 05/06/2024 TSH 07/29/2024 TSH WITH REFLEX TO FT4 09/07/2021 TSH WITH REFLEX TO FT4 07/26/2020 URIC ACID 09/20/2020 URIC ACID 12/17/2017 URINALYSIS W/REFLEX CULTURE 06/25/2023 URINALYSIS W/REFLEX CULTURE 09/07/2021 URINALYSIS W/REFLEX CULTURE 07/29/2024 URINALYSIS, COMPLETE 10/16/2017 Uric Acid 02/02/2019 CBC with Differential 07/29/2024 CT Head w and w/o Contrast 03/25/2018 XR KUB 12/28/2021 LIPID PANEL, STANDARD 09/09/2024 LIPID PANEL, STANDARD 02/26/2023 COMPREHENSIVE METABOLIC PANEL 02/26/2023 COMPREHENSIVE METABOLIC PANEL 09/09/2024 CBC (INCLUDES DIFF/PLT) 09/09/2024 CBC (INCLUDES DIFF/PLT) 02/26/2023 URINALYSIS, COMPLETE 09/09/2024 URINALYSIS, COMPLETE 02/26/2023 HEMOGLOBIN A1c 09/09/2024 TSH W/REFLEX TO FT4 09/09/2024 VITAMIN D,25-OH,TOTAL,IA 09/09/2024 COMPLETE URINALYSIS 09/20/2020 COMPLETE URINALYSIS 07/26/2020 PPC Rapid Covid/Strep/Flu/RSV 08/05/2024 Next Appt Details Provider Name:JASON ERWIN, 11/30/2024 08:45:00 AM, [address] [facility], [address] [address], [place], [address], Provider Name:JASON ERWIN, 01/07/2025 09:00:00 AM, [address] [facility], [facility] [address], [place], [address], Insurance Providers Payer Name Payer Address Payer Phone Subscriber Number Group Number Insured Name Patient Relationship to Insured Coverage Start Date Coverage End Date Medicare Part B [id number] [address] [place] [id number] ELADIO FOWLER Self - patient is the insured 9 [employer] [place] [employer] [address] [place] [address] [phone] [id number] ELADIO FOWLER Self - patient is the insured Medical (General) History Medical History History ICD Code hyperlipidemia hypertension asthma
--- NOTE | 2024-11-27 13:38 | MHC.OFFWIV ---
Intake Vital Signs 11/27/24 13:39 Height 5 ft 7 in Weight 325 lb 6 oz BMI 51.0 BP 110/66 Blood Pressure Location Lt brachial Position Sitting Pulse 52 Pulse Source Pulse Oximeter Temp 98.2 F Temp Source Oral Pulse Oximetry (%) 96 Oxygen Delivery Method Room Air Intake Visit Reasons: EP hit head with garage door Patient Tobacco Use Status: Never used Tobacco Overnight Associate Required: No Allergies latex Allergy (Severe, Verified 11/27/24 13:45) Rash Do you need a note to return to daycare/school/sports/work: Yes HPI HPI Comments History of Present Illness Details This is a 44-year-old male presenting for evaluation of a head injury. Patient states he was at his mother's house and lifted the garage door to throw away a pizza box when the garage door came down on his forehead and top of his glasses. Patient did not fall to the ground and denies any loss of consciousness. Patient states he has ?unbelievable pressure? behind his eyes and forehead. Patient has not taken any medication for treatment of his discomfort. He denies having any visual changes, neck pain, nausea, vomiting or lightheadedness. [facility] Social History Patient Tobacco Use Status: Never used Tobacco Review of Systems Const All systems reviewed & are unremarkable except as noted in HPI and below Reports no additional complaints and Reports headache(s) Eyes Reports as per HPI, Denies change in vision, Denies diplopia, Denies floaters, Denies loss of vision and Denies other visual disturbances ENT Details: pain in forehead at site of contusion Denies vertigo and Reports headache(s) Card Denies syncope Musc Reports no additional complaints Skin/Breast Denies bleeding lesions, Denies lesions and Denies sores Neuro Reports no additional complaints, Denies confusion, Denies vertigo, Denies syncope, Reports headache(s), Denies loss of vision, Denies memory loss and Denies Other visual disturbances Psych Reports no additional complaints, Denies confusion and Denies memory loss Physical Exam Vital Signs: Last Vital Signs Temp 98.2 F 11/27/24 13:39 Pulse 52 11/27/24 13:39 BP 110/66 11/27/24 13:39 Pulse Ox 96 11/27/24 13:39 Oxygen Delivery Method Room Air 11/27/24 13:39 BMI result Body Mass Index 51.0 Const General: comfortable, no acute distress, well developed, alert, awake and Physically active; No confusion Nutritional Appearance: obese Orientation/consciousness: patient oriented x3 and No confusion Limitations: no limitations HEENT Head: Yes normal to inspection, Yes normocephalic, Yes contusion (mild erythema central forehead and nasal bone, no ecchymosis, edema or lac.), No scalp lesion and No scalp tenderness Ears: hearing grossly normal bilaterally, external ears normal and TM's normal bilaterally General nose exam: Other nasal findings present (No pain to palpation of the nasal bone) Face and sinus: Yes normal facial exam (No pain to palpation of facial bones including maxilla, zygoma, frontal ) and No edema Teeth and gingiva: dentition normal Eyes General: appearance normal, both eyes and all related structures Visual [place]: normal visual [place] ri[place] by confrontation Alignment and Position: alignment normal Periorbital: periorbital findings normal Eyelids: Yes eyelids normal Conjunctivae: conjunctivae normal Sclerae: sclerae normal Corneas: corneas normal Pupils: Equal, round and reactive pupils present EOM: EOMs intact bilaterally Direct Ophthalmoscopy: normal light reflex and no photophobia Neck Neck: Yes normal visual inspection, Yes full ROM, Yes supple and No tender Neuro General: patient oriented x3, gait normal, CN's II-XI intact bilaterally and No confusion Cranial nerves: Yes Equal, round and reactive pupils present Psych Appearance: grossly normal Mental Status: mental status grossly normal Insight: Good insight present (Psych) Judgement: Good judgement present (Psych) Assessment & Plan Assessment & Plan (1) Head injury due to trauma: Comment: Patient is neurologically intact and in no acute distress. Patient is able to provide a thorough and reliable history. There is no abrasions, lacerations or neck pain on clinical examination. No further imaging is warranted at this time. Code(s): S09.90XA - Unspecified injury of head, initial encounter Qualifiers: Encounter type: initial encounter Qualified Code(s): S09.90XA - Unspecified injury of head, initial encounter Plan: Tylenol OTC every 8 hours as needed for discomfort. Coding Level of Care Code Est Pt Level 3 (51168) Diagnoses Traumatic injury of head, initial encounter S09.90XA Encounter type: initial encounter Time Spent (min) 20
[2024-11-27 13:39] VITALS: BP 110/66; PULSE 52; TEMP 36.8; O2SAT 96; BMI 51.0
== END 2024-11-27 14:29 | disposition home or self-care (01) ==
PROVIDERS: PCP Internal Medicine; Visit Provider Physician Assistant
DX: S09.90XA Unspecified injury of head, initial encounter (principal)

== ENCOUNTER → 2024-11-27 13:29 | Outpatient (BNVA) | payer MEDICARE, MEDICAID, SELFPAY | PROVIDERS: PCP Internal Medicine; Visit Provider Physician Assistant | DX: S09.90XA Unspecified injury of head, initial encounter (principal) | CPT/HCPCS: 99212 ==